=== PATIENT | female | born 1940 | race Caucasian/White ===

== ENCOUNTER 2021-02-15 10:13 | Outpatient (CLI) | payer MEDICARE, SELFPAY ==
--- NOTE | 2021-02-15 | XR_ITS ---
WS: [id number] Right wrist, 3 views, 02/15/2021 Clinical Data: RT WRIST PAIN, NO KNOWN INJURY Comparison: None. Findings: No fractures or dislocations are seen. The carpal bones are intact. There is no soft tissue swelling. The distal radius and ulna are not remarkable. There are small cysts in several carpal bones. 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 XR/XR wrist RT min 3V* [id number] Impression: 1. Minimal cystic change in the carpal bones. 2. 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
== END 2021-02-15 10:14 | disposition home or self-care (01) ==
LOC: RADOUTREAD 10:23
PROVIDERS: Visit Provider Nurse Practitioner Family
DX: M19.031 Primary osteoarthritis, right wrist (principal); M25.531 Pain in right wrist

== ENCOUNTER 2021-02-28 20:11 | Emergency (ER) | payer MEDICARE, SELFPAY ==
[2021-02-28 20:54] VITALS: BP 148/81; PULSE 74; RESP 16; TEMP 37.9; O2SAT 94
--- NOTE | 2021-02-28 22:47 | ED_ITS ---
HPI - COVID General: Chief Complaint: COVID symptoms Stated Complaint: Fever, headache,N/V Time Seen by Provider: 02/28/21 22:28 Triage information: No fever, cough or shortness of breath . No known COVID + exposure last 14 days History of Present Illness: HPI Narrative: Patient complains about Covid-like symptoms starting today. Had a fever headache loss of taste smell been nauseated aching all over. Patient has not been vaccinated MD complaint: has COVID symptoms Prior covid testing: no COVID 19 common symptoms: positive fever(s), body aches, headache(s), loss of sense of smell and/or taste and nausea; negative non-productive cough, productive cough, dyspnea, throat pain or nasal congestion COVID 19 other sytmptoms: negative chest pain Onset (ago): hour(s) Severity: mild Treatment prior to arrival: none COVID Results: SARS-CoV-2 Antigen (Rapid) Negative (Negative) 02/28/21 23:20 02/28/21 Review of Systems Const: Reports: fever(s) and body aches Eyes: Denies: change in vision or blurry vision ENMT: Denies: throat pain or nasal congestion Card: Denies: chest pain or dyspnea on exertion Resp: Denies: dyspnea, productive cough or non-productive cough GI: Reports: nausea Musc: Denies: extremity pain Skin/Breast: Denies: rash Neuro: Reports: headache(s) Psych: Denies: anxiety or depression David/Lymph: Denies: easy bruising Physical Exam Const: COMMON NORMALS: no acute distress, average body habitus and patient oriented x3 HENMT: COMMON NORMALS: normocephalic HEAD & SCALP: normal to inspection and normocephalic FACE & SINUS: normal facial exam Eye: COMMON NORMALS: conjunctivae normal GENERAL EYE: appearance normal, both eyes and all related structures CONJUNCTIVA: Yes conjunctivae normal Neck/C-Spine: COMMON NORMALS: no JVD Chest: COMMONS NORMALS: normal inspection of the chest Resp: COMMON NORMALS: normal respiratory effort and clear to auscultation bilaterally AUSCULTATION: clear to auscultation bilaterally Cardio: COMMON NORMALS: no JVD, regular rate and regular rhythm RATE: regular rate RHYTHM: regular rhythm GI: COMMON NORMALS: Normal to inspection, nondistended, normoactive bowel sounds present Extremity: COMMON NORMALS: normal to inspection and full ROM Neuro: COMMON NORMALS: patient oriented x3 Course Vital Signs: Vital signs: Vital Signs Temperature 100.3 F H 02/28/21 20:54 Pulse Rate 63 03/01/21 00:59 Respiratory Rate 16 02/28/21 20:54 Blood Pressure 136/71 03/01/21 00:59 Pulse Oximetry 96 03/01/21 00:59 MDM - COVID MDM Narrative: Medical decision making narrative: Patient presents with Covid- like symptoms. Covid work-up was negative. WBC was elevated at 15.8 with a left shift. Chest x-ray was negative. UA shows ordered but was not obtained. Patient was given fluids plus IV antibiotics Rocephin. Patient says she wants to go home does not want to stay any longer. I did not find sources for fever. Patient was given case management consult for primary care provider. Instructed with strict instructions to follow-up here are go see her primary care if worsening symptoms. Patient agrees to plan. Lab Data: Labs: Lab Results 02/28/21 02/28/21 02/28/21 23:20 23:20 23:23 WBC 15.8 10^3/uL H 10 ^3/uL (4.0-10.0) RBC 4.45 10^6/uL 10^6 /uL (4.1-5.3) Hgb 14.2 g/dL g/dL (11.5-15.3) Hct 41.3 % % (37.0-47.0) MCV 92.8 fl fl (81-99) MCH 31.9 pg pg (28.0-34.0) MCHC 34.4 g/dL g/dL (30.0-36.0) RDW 12.2 % % (12.1-15.1) Plt Count 206 10^3/cmm 10^3 /cmm (130-400) MPV 9.6 fL fL (7.4-10.4) Neut % (Auto) 90.2 % % Lymph % (Auto) 4.3 % % [place] % (Auto) 4.1 % % Eos % (Auto) 0.6 % % Baso % (Auto) 0.2 % % Neut # (Auto) 14.23 10^3/uL H 1 0^3/uL (1.8-7.7) Lymph # (Auto) 0.7 10^3/uL L 10^ 3/uL (0.8-4.8) [place] # (Auto) 0.7 10^3/uL 10^3/ uL (0.2-0.9) Eos # (Auto) 0.1 10^3/uL 10^3/ uL (0.0-0.8) Baso # (Auto) 0.0 10^3/uL 10^3/ uL (0.0-0.1) Nucleated RBC % (a uto) 0 % % Nucleated RBCs # 0.0 /100WBC /100W BC Sodium Potassium Chloride Carbon Dioxide Anion Gap BUN Creatinine GFR Calculation Glucose Calculated Osmolal ity Calcium Total Bilirubin AST ALT Alkaline Phosphata se Total Protein Albumin Globulin Influenza Type A A g Negative (Negative) Influenza Type B A g Negative (Negative) SARS-CoV-2 Ag (Rap id) Negative (Negative) 02/28/21 23:23 WBC RBC Hgb Hct MCV MCH MCHC RDW Plt Count MPV Neut % (Auto) Lymph % (Auto) [place] % (Auto) Eos % (Auto) Baso % (Auto) Neut # (Auto) Lymph # (Auto) [place] # (Auto) Eos # (Auto) Baso # (Auto) Nucleated RBC % (a uto) Nucleated RBCs # Sodium 135 mmol/L L mmol /L (136-145) Potassium 3.9 mmol/L mmol/L (3.5-5.1) Chloride 101 mmol/L mmol/L (98-107) Carbon Dioxide 20 mmol/L L mmol/ L (22-29) Anion Gap 17.9 (5-19) BUN 11 mg/dL mg/dL (8-23) Creatinine 0.7 mg/dL mg/dL (0.5-0.9) GFR Calculation Not Reportable Glucose 120 mg/dL H mg/dL (65-115) Calculated Osmolal ity 281 mOsm/kg L mOs m/kg (285-295) Calcium 8.3 mg/dL L mg/dL (8.5-10.5) Total Bilirubin 0.9 mg/dL mg/dL (0.15-1.2) AST 12 U/L U/L (0-32) ALT 11 U/L U/L (0-33) Alkaline Phosphata se 67 IU/L IU/L (35-105) Total Protein 6.0 g/dL L g/dL (6.6-8.7) Albumin 3.8 g/dL g/dL (3.5-5.2) Globulin 2.2 g/dL g/dL (1.3-4.6) Influenza Type A A g Influenza Type B A g SARS-CoV-2 Ag (Rap id) COVID Results: SARS-CoV-2 Antigen (Rapid) Negative (Negative) 02/28/21 23:20 02/28/21 Discharge Plan Discharge Patient Disposition: Home Clinical Impression: Fever Qualifiers: Fever type: due to other condition Qualified Code(s): R50.81 - Fever presenting with conditions classified elsewhere Condition: Stable Prescriptions: New cephalexin 500 mg capsule 500 mg PO Q8H 7 Days Qty: 21 RF: 0 Discharge Orders: Discharge ED (Routine); Ordered 03/01/21 Ordered By: Thierry Poon Discharge Diet: Usual diet Discharge Activity: Increase activity as tolerated Patient Instructions: Fever in Adults (ED) Activity Restrictions/Additional Instructions: Follow-up with medical provider as directed. Take medications as prescribed. Return to the ER or your medical provider if condition worsens. Please read and understand discharge instructions. If any questions ask please. Coding Level of Care Code ED Commercial Credit Reviewer for Melodie Fwd Exam Comprehensive
[2021-02-28 23:25] VITALS: BP 116/67; PULSE 64; O2SAT 96
[2021-02-28 23:28] VITALS: O2SAT 96
[2021-02-28 23:49] LABS: Influenza A by IFA Negative (Negative); Influenza B by IFA Negative (Negative); SARS Covid-2 Antigen Negative (Negative)
[2021-02-28 23:57] LABS: Basophils % 0.2 %; Eosinophils # 0.1 10^3/uL (0.0-0.8); Eosinophils % 0.6 %; Hematocrit 41.3 % (37.0-47.0); Hemoglobin 14.2 g/dL (11.5-15.3); Lymphocytes # 0.7 10^3/uL (0.8-4.8); Lymphocytes % 4.3 %; Mean Corpuscular HGB Conc 34.4 g/dL (30.0-36.0); Mean Corpuscular Hemoglobin 31.9 pg (28.0-34.0); Mean Corpuscular Volume 92.8 fl (81-99); Mean Platelet Volume 9.6 fL (7.4-10.4); Monocytes # 0.7 10^3/uL (0.2-0.9); Monocytes % 4.1 %; Neutrophils # 14.23 10^3/uL (1.8-7.7); Neutrophils % 90.2 %; Nucleated Red Blood Cells % 0 %; Platelet Count 206 10^3/cmm (130-400); Red Blood Count 4.45 10^6/uL (4.1-5.3); Red Cell Distribution Width 12.2 % (12.1-15.1); White Blood Count 15.8 10^3/uL (4.0-10.0)
--- NOTE | 2021-03-01 00:01 | XRR_ITS ---
PROCEDURE INFORMATION: Exam: XR Chest Exam date and time: 03/01/2021 12:01 AM Age: 80 years old Clinical indication: Fever TECHNIQUE: Imaging protocol: XR of the chest. Views: 1 view. COMPARISON: No relevant prior studies available. FINDINGS: Lungs: Emphysematous lung changes. No focal airspace consolidation. Pleural spaces: Unremarkable. No pleural effusion. No pneumothorax. Heart/Mediastinum: Mild cardiomegaly. Bones/joints: Unremarkable. XR/XR chest 1V portable [id number] IMPRESSION: Negative for focal pneumonia.
[2021-03-01 00:08] LABS: Alanine Aminotransferase 11 U/L (0-33); Albumin Level 3.8 g/dL (3.5-5.2); Alkaline Phosphatase 67 IU/L (35-105); Anion Gap 17.9 (5-19); Aspartate Amino Transferase 12 U/L (0-32); Blood Urea Nitrogen 11 mg/dL (8-23); Calcium 8.3 mg/dL (8.5-10.5); Carbon Dioxide 20 mmol/L (22-29); Chloride 101 mmol/L (98-107); Globulin 2.2 g/dL (1.3-4.6); Glucose 120 mg/dL (65-115); Osmolality Calculated 281 mOsm/kg (285-295); Potassium 3.9 mmol/L (3.5-5.1); Sodium 135 mmol/L (136-145); Total Bilirubin 0.9 mg/dL (0.15-1.2)
[2021-03-01] MEDS: sodium chloride 0.9% 500 ML 999 ML IV (00:13)
[2021-03-01] MEDS: ketorolac 30 mg/mL INJ IVP (00:14)
[2021-03-01] MEDS: acetaminophen 500 mg Tablet 1000 MG PO (00:15)
[2021-03-01] MEDS: sodium chloride 0.9% 1,000 ML 999 ML IV (00:15)
[2021-03-01] MEDS: ondansetron 2 mg/ML SDV 2 mL 4 MG IVP (00:19)
[2021-03-01] MEDS: cefTRIAXone 1,000 MG in sodium chloride 0.9% (plus) 50 ML 100 MG IV (00:19)
[2021-03-01 00:21] VITALS: BP 136/71; PULSE 63; O2SAT 96
[2021-03-01 00:59] VITALS: BP 136/71; PULSE 63; O2SAT 96
--- NOTE | 2021-03-05 16:40 | PC.SOCIAL ---
Addendum entered by Amparo Leahy, RN 03/05/21 16:42: Please note spoke to ximena at clinic to schedule appt. Original Note: Referral received from ED provider Thierry Poon to establish and followup with PCP. Patient is agreeable to see Dr Andrade therefore appt made for 03/11/2021 at 1:00pm. Provided address and phone number to clinic as well. NO further questions voiced.
--- NOTE | 2021-03-14 15:38 | DCPLANNER ---
Patient had a follow up appointment scheduled with Dr. Andrade to establish care - patient did attend appointment.
== END 2021-03-01 01:02 | disposition home or self-care (01) ==
PROVIDERS: Emergency Provider Nurse Practitioner Family
DX: D72.829 Elevated white blood cell count, unspecified (principal); R50.81 Fever presenting with conditions classified elsewhere
CPT/HCPCS: 71045; 80053; 85025; 87426; 87804; 96365; 96375; 99284; J0696; J1885; J2405; J7030; J7040

== ENCOUNTER → 2021-03-11 14:17 | Outpatient (BNVA) | payer MEDICARE, SELFPAY | PROVIDERS: Visit Provider Family Medicine | DX: M25.50 Pain in unspecified joint (principal); M25.40 Effusion, unspecified joint; Z76.89 Persons encountering health services in other specified circumstances; Z86.2 Personal history of diseases of the blood and blood-forming organs and certain disorders involving the immune mechanism | CPT/HCPCS: 84550; 85651; 86038; 86140; 86200; 86431 ==

== ENCOUNTER → 2021-03-19 14:29 | Outpatient (BNVA) | payer MEDICARE, SELFPAY | PROVIDERS: Visit Provider Family Medicine | DX: R76.8 Other specified abnormal immunological findings in serum (principal); M25.50 Pain in unspecified joint; M25.40 Effusion, unspecified joint; Z12.4 Encounter for screening for malignant neoplasm of cervix | CPT/HCPCS: 86160; 86162; 86235; 86255; 86376; 86705; 86706; 86803; 87340 ==

== ENCOUNTER 2021-05-13 07:55 | Outpatient (CLI) | payer MEDICARE, SELFPAY ==
--- NOTE | 2021-05-13 09:17 | XRR_ITS ---
PROCEDURE INFORMATION: Exam: XR Chest Exam date and time: 05/13/2021 9:17 AM Age: 80 years old Clinical indication: Prior surgery; Surgery type: --partial hyst; Patient HX: HX of sarcoidosis; C/O shortness of breath and cannot get deep breath x 2 weeks; Additional info: Shortness of breath/sarcoidosis TECHNIQUE: Imaging protocol: XR of the chest. Views: 2 views. COMPARISON: CR (CHEST, ) 03/01/2021 12:06 AM FINDINGS: Lungs: Unremarkable. No consolidation. Pleural spaces: Unremarkable. No pleural effusion. No pneumothorax. Heart/Mediastinum: Unremarkable. No cardiomegaly. Bones/joints: Unremarkable. XR/XR chest 2V* [id number] IMPRESSION: No acute findings.
== END 2021-05-13 07:56 | disposition home or self-care (01) ==
PROVIDERS: PCP Family Medicine; Visit Provider Family Medicine
DX: R06.02 Shortness of breath (principal)
CPT/HCPCS: 71046

== ENCOUNTER 2022-01-20 15:08 | Emergency (ER) | payer MEDICARE, SELFPAY ==
[2022-01-20] VITALS (15 sets, daily range): BP systolic 152–208; BP diastolic 84–111; PULSE 55–79; RESP 11–35; TEMP 36.6; O2SAT 94–100
--- NOTE | 2022-01-20 15:30 | ECG_ITS ---
[facility] Test Date: 2022-01-20 Pat Name: Lawanda Bernstein Department: Room: Gender: Female Security Operations Manager: : 1940 Requested By: Tobias Quan Order Number: [id number] Pete MD: Vida Lopez M.D. Measurements Intervals [place] Rate: 62 P: 56 VA: 196 QRS: -34 QRSD: 100 T: 69 QT: 436 QTc: 443 Interpretive Statements SINUS RHYTHM LEFT AXIS DEVIATION [QRS AXIS < -30] LOW QRS VOLTAGE IN PRECORDIAL LEADS [QRS DEFLECTION < 1.0 mV IN CHEST LEADS] PATTERN CONSISTENT WITH PULMONARY DISEASE LEFT VENTRICULAR HYPERTROPHY AND ST-T CHANGE [VOLTAGE CRITERIA PLUS ST/T ABNORMALITY] No previous ECG available for comparison Electronically Signed On 01-21-2022 12:02:08 FULLER BRUSH WORKER by Vida Lopez M.D. [id number]
--- NOTE | 2022-01-20 15:32 | ED_ITS ---
HPI - Chest Pain General: Chief Complaint: Chest Pain Stated Complaint: Dr. Andrade sent for heart issues Time Seen by Provider: 01/20/22 15:31 History of Present Illness: Ms. Bernstein is an 81-year-old lady with history of hypertension, hyperlipidemia, stroke, sarcoidosis presenting to the emergency department due to generalized illness. She reports a few day history of gradual onset chest discomfort which is a burning pressure in the middle of her chest without other typical cardiac features. Additionally she started having a presyncopal type feeling earlier today which is similar to a prior stroke though denies other focal neurologic symptoms. Overall course of symptoms has been worsening. Intensity is moderate to severe. Went to primary care earlier today who referred her to the emergency department for further evaluation. No other specific changes in health, exacerbating, or alleviating factors identified. Onset (ago): day(s) Timing of current episode: constant Onset: during rest Pain location: substernal Pain radiation: none Quality: heaviness and burning Relieving factors: nothing Exacerbating factors: nothing Associated symptoms: Reports other Review of Systems General: Reports: 10 or more systems reviewed and unremarkable except in HPI and below PFSH ED PFSH: Medical History Essential hypertension H/O sarcoidosis Mixed dyslipidemia Positive JANET (antinuclear antibody) Rheumatoid factor positive Surgical History History of partial hysterectomy Social History Smoking and tobacco status: never smoked Alcohol intake: never History of recent travel: No Female Reproductive History: Spontaneous abortions: No Physical Exam Const: COMMON NORMALS: alert GENERAL APPEARANCE: cooperative and well developed HENMT: COMMON NORMALS: normocephalic and atraumatic HEAD & SCALP: normocephalic and atraumatic Eye: COMMON NORMALS: conjunctivae normal CONJUNCTIVA: Yes conjunctivae normal SCLERA: sclerae normal Neck/C-Spine: COMMON NORMALS: supple GENERAL: Yes trachea midline Resp: COMMON NORMALS: clear to auscultation bilaterally EFFORT & INSPECTION: Yes able to speak in complete sentences AUSCULTATION: clear to auscultation bilaterally Cardio: COMMON NORMALS: regular rate and regular rhythm RATE: regular rate RHYTHM: regular rhythm GI: COMMON NORMALS: Soft to palpation PALPATION: Yes Soft to palpation and No Tenderness to palpation present (GI) Extremity: GENERAL: Yes normal exam except as noted and No edema Neuro: COMMON NORMALS: moves all extremities SENSORIUM/ORIENTATION: Yes alert and No Orientation impaired Psych: COMMON NORMALS: mental status grossly normal and Normal thought process present THOUGHT PROCESS: Normal thought process present Course Vital Signs: Vital signs: Vital Signs Temperature 97.9 F 01/20/22 15:23 Pulse Rate 56 L 01/20/22 18:30 Respiratory Rate 19 H 01/20/22 18:30 Blood Pressure 195/111 01/20/22 18:45 Pulse Oximetry 97 01/20/22 18:30 Oxygen Delivery Me thod 01/20/22 16:30 MDM - Chest Pain Medical Decision Making 81-year-old lady presenting for headache and high blood pressure. Exam as above, no new focal neurologic deficits appreciated. EKG notable for sinus rhythm with nonspecific QRS changes, no STEMI. Unremarkable hematologic panel. Metabolic panel with mild hypokalemia. 2-hour delta troponin is negative. Head CT without acute hemorrhage or mass. No lobar consolidation or pneumothorax on chest x-ray. Blood pressure control and potassium supplementation given with improvement in patient's symptoms. Most likely cause of patient's symptoms is related to hypertension without evidence of hypertensive emergency The results of ED evaluation were discussed with the patient including prescriptions and/or symptomatic cares (if applicable) including appropriate and responsible use, followup plan, and return precautions. The patient verbalized understanding and felt safe for discharge. Medical Records I reviewed the patient's medical records. Lab Data I reviewed the patient's lab results. : 01/20/22 15:48 01/20/22 15:48 Radiology Impressions Chest X-Ray 01/20/22 15:39 IMPRESSION: No acute findings. Head CT 01/20/22 15:39 IMPRESSION: No acute intracranial abnormality. Laboratory Results WBC 8.3 10^3/uL (4.0-10.0) 01/20/22 15:48 RBC 4.35 10^6/uL (4.1-5.3) 01/20/22 15:48 Hgb 13.8 g/dL (11.5-15.3) 01/20/22 15:48 Hct 39.4 % (37.0-47.0) 01/20/22 15:48 MCV 90.6 fl (81-99) 01/20/22 15:48 MCH 31.7 pg (28.0-34.0) 01/20/22 15:48 MCHC 35.0 g/dL (30.0-36.0) 01/20/22 15:48 RDW 12.3 % (12.1-15.1) 01/20/22 15:48 Plt Count 221 10^3/cmm (130-400) 01/20/22 15:48 MPV 9.7 fL (7.4-10.4) 01/20/22 15:48 Neut % (Auto) 76.5 % 01/20/22 15:48 Lymph % (Auto) 16.1 % 01/20/22 15:48 [place] % (Auto) 5.8 % 01/20/22 15:48 Eos % (Auto) 0.8 % 01/20/22 15:48 Baso % (Auto) 0.4 % 01/20/22 15:48 Neut # (Auto) 6.31 10^3/uL (1.8-7.7) 01/20/22 15:48 Lymph # (Auto) 1.3 10^3/uL (0.8-4.8) 01/20/22 15:48 [place] # (Auto) 0.5 10^3/uL (0.2-0.9) 01/20/22 15:48 Eos # (Auto) 0.1 10^3/uL (0.0-0.8) 01/20/22 15:48 Baso # (Auto) 0.0 10^3/uL (0.0-0.1) 01/20/22 15:48 Nucleated RBC % (auto) 0 % 01/20/22 15:48 Nucleated RBCs # 0.0 /100WBC 01/20/22 15:48 Sodium 138 mmol/L (136-145) 01/20/22 15:48 Potassium 3.2 mmol/L (3.5-5.1) L 01/20/22 15:48 Chloride 104 mmol/L (98-107) 01/20/22 15:48 Carbon Dioxide 22 mmol/L (22-29) 01/20/22 15:48 Anion Gap 15.2 (5-19) 01/20/22 15:48 BUN 9 mg/dL (8-23) 01/20/22 15:48 Creatinine 0.8 mg/dL (0.5-0.9) 01/20/22 15:48 GFR Calculation Not Reportable 01/20/22 15:48 Glucose 110 mg/dL (65-115) 01/20/22 15:48 Calculated Osmolality 285 mOsm/kg (285-295) 01/20/22 15:48 Calcium 9.0 mg/dL (8.5-10.5) 01/20/22 15:48 Total Bilirubin 0.5 mg/dL (0.15-1.2) 01/20/22 15:48 AST 13 U/L (0-32) 01/20/22 15:48 ALT 10 U/L (0-33) 01/20/22 15:48 Alkaline Phosphatase 107 U/L (35-105) H 01/20/22 15:48 Troponin T Baseline 10 ng/L (0-10) 01/20/22 15:48 Troponin T 120 Minute 9.01 ng/L (0-10) 01/20/22 15:48 Delta Troponin T -0.99 ABS# (0-10) L 01/20/22 15:48 NT-Pro-B Natriuret Pep 94 pg/mL (0-450) 01/20/22 15:48 Total Protein 6.3 g/dL (6.6-8.7) L 01/20/22 15:48 Albumin 4.0 g/dL (3.5-5.2) 01/20/22 15:48 Globulin 2.3 g/dL (1.3-4.6) 01/20/22 15:48 TSH 0.36 uIU/mL (0.27-4.20) 01/20/22 15:48 Discharge Plan Discharge Patient Disposition: Home Clinical Impression: Chest pain Condition: Stable Prescriptions: No Action aspirin 325 mg tablet 325 mg PO DAILY cholecalciferol (vitamin D3) 50 mcg (2,000 unit) capsule 50 mcg PO DAILY valsartan 320 mg tablet 320 mg PO DAILY Qty: 90 1RF amlodipine 5 mg tablet 5 mg PO DAILY Qty: 90 1RF omeprazole 40 mg capsule,delayed release(DR/EC) 40 mg PO DAILY Qty: 90 2RF amoxicillin-pot clavulanate 875-125 mg tablet 1 tab PO BID Qty: 14 0RF Coricidin HBP Max Cold-Flu D-N 6.25 mg-10 mg- 325 mg (nt) Capsule, Sequential See Rx Instructions .ROUTE .COMPLEX Rx Instructions: as directed Discharge Orders: Discharge ED (Routine); Ordered 01/20/22 Ordered By: Tobias Quan Referrals: Cortes Andrade DO [Primary Care Provider] - Discharge Diet: Usual diet Discharge Activity: Increase activity as tolerated Patient Instructions: Chest Pain (ED), Hypertension (ED) Activity Restrictions/Additional Instructions: Thank you for visiting the emergency department. You were seen evaluated for chest pain and high blood pressure. The exact cause of your symptoms is unclear, as discussed you are at moderate risk for major adverse cardiac events, you are electing to have further outpatient management. I will message case management for follow-up. Please follow-up with your primary care provider as well. Please resume your previously prescribed medications including blood pressure medications. Return to the emergency department for uncontrolled symptoms or anything else that you are concerned about a feel needs emergency department evaluation. Coding Level of Care Code ED Cnc Mill Operator for Melodie Fwd Exam Comprehensive
--- NOTE | 2022-01-20 15:39 | XRR_ITS ---
PROCEDURE INFORMATION: Exam: XR Chest Exam date and time: 01/20/2022 5:03 PM Age: 81 years old Clinical indication: Pain; Angina pectoris; Additional info: Cp TECHNIQUE: Imaging protocol: Radiologic exam of the chest. Views: 1 view. COMPARISON: CR XR chest 2V* [id number] 05/13/2021 9:17 AM FINDINGS: Lungs: Unremarkable. No consolidation. Pleural spaces: Unremarkable. No pleural effusion. No pneumothorax. Heart/Mediastinum: Unremarkable. No cardiomegaly. Bones/joints: Unremarkable. XR/XR chest 1V portable [id number] IMPRESSION: No acute findings.
--- NOTE | 2022-01-20 15:39 | CTR_ITS ---
PROCEDURE INFORMATION: Exam: CT Head Without Contrast Exam date and time: 01/20/2022 4:01 PM Age: 81 years old Clinical indication: Dizziness; Additional info: Presyncope type feeling TECHNIQUE: Imaging protocol: Computed tomography of the head without contrast. Radiation optimization: All CT scans at this facility use at least one of these dose optimization techniques: automated exposure control; mA and/or kV adjustment per patient size (includes targeted exams where dose is matched to clinical indication); or iterative reconstruction. COMPARISON: No relevant prior studies available. RADIATION DOSE METRICS: Total DLP (mGy-cm): 993.08 FINDINGS: Brain: No hemorrhage. No edema. Moderate diffuse cerebral atrophy and mild sequela of chronic small vessel ischemic disease. No mass effect. Cerebral ventricles: No ventriculomegaly. Paranasal sinuses: Visualized sinuses are unremarkable. No fluid levels. Mastoid air cells: Visualized mastoid air cells are well aerated. Bones/joints: Unremarkable. No acute fracture. Soft tissues: Unremarkable. CT/CT head wo con* [id number] IMPRESSION: No acute intracranial abnormality.
[2022-01-20 16:00] LABS: Basophils % 0.4 %; Eosinophils # 0.1 10^3/uL (0.0-0.8); Eosinophils % 0.8 %; Hematocrit 39.4 % (37.0-47.0); Hemoglobin 13.8 g/dL (11.5-15.3); Lymphocytes # 1.3 10^3/uL (0.8-4.8); Lymphocytes % 16.1 %; Mean Corpuscular Hemoglobin 31.7 pg (28.0-34.0); Mean Corpuscular Volume 90.6 fl (81-99); Mean Platelet Volume 9.7 fL (7.4-10.4); Monocytes # 0.5 10^3/uL (0.2-0.9); Monocytes % 5.8 %; Neutrophils # 6.31 10^3/uL (1.8-7.7); Neutrophils % 76.5 %; Nucleated Red Blood Cells % 0 %; Platelet Count 221 10^3/cmm (130-400); Red Blood Count 4.35 10^6/uL (4.1-5.3); Red Cell Distribution Width 12.3 % (12.1-15.1); White Blood Count 8.3 10^3/uL (4.0-10.0)
[2022-01-20] MEDS: aspirin 81 mg Chew Tablet 324 MG PO (16:14)
[2022-01-20] MEDS: nitroglycerin 0.4 mg sublingual Tablet SUBLINGUAL ×2 (16:18→16:24)
[2022-01-20 16:23] LABS: Alanine Aminotransferase 10 U/L (0-33); Alkaline Phosphatase 107 U/L (35-105); Anion Gap 15.2 (5-19); Aspartate Amino Transferase 13 U/L (0-32); Blood Urea Nitrogen 9 mg/dL (8-23); Carbon Dioxide 22 mmol/L (22-29); Chloride 104 mmol/L (98-107); Globulin 2.3 g/dL (1.3-4.6); Glucose 110 mg/dL (65-115); NT Pro B Type Natriuretic Pept 94 pg/mL (0-450); Osmolality Calculated 285 mOsm/kg (285-295); Potassium 3.2 mmol/L (3.5-5.1); Sodium 138 mmol/L (136-145); Thyroid Stimulating Hormone 0.36 uIU/mL (0.27-4.20); Total Bilirubin 0.5 mg/dL (0.15-1.2); Total Protein 6.3 g/dL (6.6-8.7)
[2022-01-20 16:24] LABS: Troponin(5th) Baseline 10 ng/L (0-10)
[2022-01-20] MEDS: labetalol 5 mg/mL SDV 20mL 20 MG IVP (16:29)
[2022-01-20] MEDS: amlodipine 5 mg Tablet PO (18:17)
[2022-01-20] MEDS: potassium chloride ER 20 mEq Tablet 40 MEQ PO (18:17)
[2022-01-20 18:22] LABS: Troponin 5 2HR 9.01 ng/L (0-10)
[2022-01-20 18:40] LABS: Troponin 5 2HR Delta -0.99 ABS# (0-10)
--- NOTE | 2022-01-21 10:22 | DCPLANNER ---
Addendum entered by Ruth Chandler 04/30/22 11:08: Patient had a stress test scheduled for 04.30.22 - patient did attend appointment. Original Note: manager universal had message to schedule an outpatient stress test for patient. manager universal faxed signed order to centralized scheduling, who will call patient with appointment information. manager universal also sent patients primary care physician, Dr. Manzo, notification that a stress test was ordered by the ER physician.
== END 2022-01-20 18:49 | disposition home or self-care (01) ==
PROVIDERS: Emergency Provider Emergency Medicine; PCP Family Medicine
DX: R07.9 Chest pain, unspecified (principal); I10 Essential (primary) hypertension; E87.6 Hypokalemia; Z79.82 Long term (current) use of aspirin; Z86.73 Personal history of transient ischemic attack (TIA), and cerebral infarction without residual deficits
CPT/HCPCS: 70450; 71045; 80053; 83880; 84443; 84484; 85025; 93005; 96374; 99285; J3490

== ENCOUNTER → 2022-02-04 07:36 | Outpatient (BNVA) | payer MEDICARE, SELFPAY | PROVIDERS: PCP Family Medicine; Visit Provider Family Medicine | DX: R30.0 Dysuria (principal) | CPT/HCPCS: 81000; 87086 ==

== ENCOUNTER 2023-08-06 06:25 | Outpatient (CLI) | payer OTHER, SELFPAY ==
--- NOTE | 2023-08-06 07:12 | MR_ITS ---
WS: [id number] MRI CERVICAL SPINE NONCONTRAST TECHNIQUE: Sagittal T1, T2 and STIR imaging. Axial T2, gradient, and fiesta imaging. CLINICAL INFORMATION: CERVICAL REGION RADICULOPATHY COMPARISON: None. FINDINGS: Straightening of the normal cervical lordosis. Cord signal is normal. No high-grade central canal kenia rowing. C2-C3: Mild facet arthropathy. Spinal canal and foramen are patent. C3-C4: Mild LEFT and no significant RIGHT foraminal narrowing. Mild facet arthropathy. C4-C5: Mild disc osteophyte complex with endplate ridging. Moderate LEFT and mild RIGHT bony foramina l narrowing. Spinal canal is patent. Moderate facet arthropathy. C5-C6: Disc osteophyte complex with endplate ridging. Mild to moderate LEFT and no significant RIGHT foraminal narrowing. Moderate facet arthropathy. C6-C7: Disc osteophyte complex with endplate ridging. Mild bilateral foraminal narrowing. Spinal luz elena l is patent. Mild facet arthropathy. C7-T1: Endplate osteophytic ridging. Mild LEFT and no significant RIGHT foraminal narrowing. Spinal c anal is patent. Visualized brain stem structures: Normal. Prevertebral soft tissues: Normal. MR/MR cervical spin wo con* [id number] IMPRESSION: 1. Straightening of the normal cervical doses with mild spondylitic changes. C ord signal is normal. 2. No significant central canal stenosis. 3. Mild to moderate foraminal narrowing LEFT C4-5, LEFT C5-6, and LEFT C7-T1 4. No other acute findings.
== END 2023-08-06 06:26 | disposition home or self-care (01) ==
LOC: RAD 06:25
PROVIDERS: PCP Family Medicine; Visit Provider Family Medicine
DX: M54.12 Radiculopathy, cervical region (principal); M99.61 Osseous and subluxation stenosis of intervertebral foramina of cervical region; M99.62 Osseous and subluxation stenosis of intervertebral foramina of thoracic region; M25.78 Osteophyte, vertebrae
CPT/HCPCS: 72141

== ENCOUNTER 2023-10-29 18:45 | Inpatient (IN) | payer MEDICARE, SELFPAY ==
[2023-10-29] VITALS (7 sets, daily range): BP systolic 92–134; BP diastolic 53–96; PULSE 78–89; RESP 18–20; TEMP 36.9–39.5; O2SAT 91–95; BMI 27.4
--- NOTE | 2023-10-29 18:57 | XRR_ITS ---
PROCEDURE INFORMATION: Exam: XR Chest Exam date and time: 10/29/2023 7:23 PM Age: 82 years old Clinical indication: Cough and fever; Additional info: Fever, cough TECHNIQUE: Imaging protocol: Radiologic exam of the chest. Views: 1 view. COMPARISON: CR XR chest 2V* [id number] 12/29/2022 1:36 PM FINDINGS: Lungs: The lungs are adequately expanded. Central vascular prominence without overt edema. Mild left basilar atelectasis. Pleural spaces: No pleural effusion or pneumothorax. Heart/Mediastinum: Cardiomegaly. Vasculature: Atherosclerotic calcifications. Bones/joints: Degenerative changes of the right shoulder. XR/XR chest 1V portable [id number] IMPRESSION: Central vascular prominence without overt edema. Mild left basilar atelectasis.
--- NOTE | 2023-10-29 18:59 | ED_ITS ---
HPI - Fever 2 General: Chief Complaint: Nausea/Vomiting/Diarrhea Stated Complaint: n/v weakness Time Seen by Provider: 10/29/23 18:46 Source: patient and family Mode of arrival: EMS Limitations: no limitations History of Present Illness: This patient was transported by EMS from her home. She is here because she developed fever chills this afternoon with nausea and vomiting. She had had an EGD this morning at [facility] and only notable for some mild what sounds like gastritis that was biopsied. She has been having some off-and-on stomach problems for some time and this was part of that workup. She has had a mild nonproductive cough for the past couple of days as well. She denies any dysuria diarrhea ongoing chest pain difficulty breathing etc. She states she does have a history of congestive heart failure. She states she has not any recent travel or known exposure to infectious disease. MD elicited complaint: fever Context: recent procedure Associated symptoms: Reports chills, nausea and vomiting; Deny abdominal pain, flank pain, chest pain, dysuria, extremity pain, headache(s) or nasal congestion Related Data Home Medications Medication Instructions Recorded Confirmed aspirin 325 mg tablet 325 mg PO DAILY 03/11/21 08/22/22 cholecalciferol (vitamin D3) 50 50 mcg PO DAILY 03/11/21 08/22/22 mcg (2,000 unit) capsule doxylamine 6.25 mg-DM 10 See Rx Instructions .Route .COMPLEX 01/20/22 08/22/22 mg-acetaminophen 325 mg (nt)-GG capsules,seq (Coricidin HBP Max Cold-Flu Day-Night) Previous Rx's Medication Instructions Recorded amlodipine 2.5 mg tablet 2.5 mg PO DAILY #90 tabs 04/23/22 tramadol 50 mg tablet 50 mg PO BID PRN pain 7 days #14 08/22/22 tabs valacyclovir 500 mg tablet 500 mg PO DAILY #5 tabs 09/23/22 omeprazole 40 mg capsule,delayed See Rx Instructions .Route 10/20/22 release .COMPLEX #90 caps valsartan 320 mg tablet See Rx Instructions .Route 01/13/23 .COMPLEX #90 tabs Allergies Allergy/AdvReac Type Severity Reaction Status Date / Time No Known Allergies Allergy Verified 08/22/22 14:24 Review of Systems 2 Const: Reports: fever(s), chills and body aches Eyes: Denies: change in vision ENMT: Denies: throat pain, odynophagia, nasal discharge or nasal congestion Card: Denies: chest pain, palpitations, irregular heart rhythm, lightheadedness, syncope or pre-syncope Resp: Reports: non-productive cough; Denies: dyspnea GI: Reports: nausea and vomiting; Denies: abdominal pain, hematemesis, hematochezia or melena : Denies: flank pain, difficulty voiding, dysuria or urinary frequency Musc: Denies: neck pain, back pain, extremity pain or extremity swelling Skin/Breast: Denies: rash Neuro: Denies: headache(s), numbness in extremities or weakness in extremities Psych: Denies: anxiety, depression, mood swings, panic attacks or sleeping less PFSH ED 2 PFSH: Medical History Mixed dyslipidemia Essential hypertension Rheumatoid factor positive Positive JANET (antinuclear antibody) H/O sarcoidosis Surgical History History of partial hysterectomy Social History Smoking and tobacco/nicotine status: never used tobacco/nicotine Alcohol intake: never Substance/Drug Use: never Female Reproductive History: Spontaneous abortions: No Physical Exam 2 Narrative: EXAM NARRATIVE: The patient is alert appears to be somewhat uncomfortable but answers questions in a goal-directed fashion makes good eye contact. Const: COMMON NORMALS: no acute distress, average body habitus, patient oriented x3 and alert GENERAL APPEARANCE: cooperative HENMT: COMMON NORMALS: normocephalic, Normal nasal mucous membranes and turbinates present, moist oral mucous membranes and oropharynx normal HEAD & SCALP: normocephalic FACE & SINUS: normal facial exam and sinuses nontender NOSE: Normal nasal mucous membranes and turbinates present Eye: COMMON NORMALS: Equal, round and reactive pupils present, EOMs intact bilaterally and conjunctivae normal CONJUNCTIVA: Yes conjunctivae normal P UPIL: Yes Equal, round and reactive pupils present Neck/C-Spine: COMMON NORMALS: full ROM, no lymphadenopathy, supple and no meningeal signs Chest: COMMONS NORMALS: normal inspection of the chest Resp: COMMON NORMALS: normal respiratory effort, No retractions, No use of accessory muscles and clear to auscultation bilaterally AUSCULTATION: clear to auscultation bilaterally Cardio: COMMON NORMALS: regular rate, No murmurs present (Cardio) and Peripheral pulses 2+ throughout RATE: regular rate PERIPHERAL PULSES: P eripheral pulses 2+ throughout GI: COMMON NORMALS: Normal to inspection, nondistended, normoactive bowel sounds present, Soft to palpation and non-tender PALPATION: Yes Soft to palpation : COMMON NORMALS: Yes no CVA tenderness BLADDER/KIDNEY EXAM: Yes no CVA tenderness Back/Pelvis: COMMON NORMALS: no CVA tenderness, thoracic and lumbar spine normal to inspection, no thoracic nor lumbar tenderness and thoraco-lumbar ROM normal Extremity: COMMON NORMALS: normal to inspection, full ROM, no calf tenderness and no pedal edema Neuro: COMMON NORMALS: patient oriented x3, moves all extremities, no focal motor deficits and no sensory deficits noted SENSORIUM/ORIENTATION: Yes alert MENINGEAL SIGNS: Yes no meningeal signs Skin: COMMON NORMALS: no rashes or lesions noted, no wounds, turgor normal, no jaundice and no petechiae GENERAL SKIN EXAM: no rashes or lesions noted and turgor normal Course 2 Reevaluation(s): Reevaluation #1: Ancillary studies of all returned and pointed this patient having a pneumonia as likely etiology of her presentation. It was shared with both the patient and her daughter who is present. The patient parenthetically related to me after this information was provided to them that she had received an albuterol treatment at the clinic before her EGD earlier today which tends to support a pulmonary etiology. No evidence of other intra-abdominal process or other concerning findings at this time to port infection in other locations. Time: 21:18 Consultations: Consultation #1: Discussed with Dr. Torres who agreed to place the patient in observation. Time: 21:24 Vital Signs: Vital signs: Vital Signs Temperature 101.4 F H 10/29/23 20:02 Pulse Rate 89 10/29/23 20:02 Respiratory Rate 18 10/29/23 20:02 Blood Pressure 114/71 10/29/23 20:02 Pulse Oximetry 95 10/29/23 20:02 Oxygen Delivery Me thod Nasal Cannula 10/29/23 20:02 Oxygen Flow Rate 2 10/29/23 20:02 MDM - Fever Medical Decision Making This patient made her way to the emergency department as noted in the HPI. History was somewhat difficult to obtain and was elucidated in a more complete fashion upon the arrival of her daughter. The patient primarily initially described being at outpatient facility for an EGD which was completed and then returning home and feeling hungry and eating and then having episode of vomiting. She had no sustained abdominal pain but did not feel well. On presentation she had fever but otherwise on remarkable clinical examination. There was no significant history of prodrome to her presentation so therefore a broad differential was entertained. She was evaluated for potential ACS, pulmonary infection, abdominal infection, urinary tract infection, viral infection. Studies were obtained which eventually led to CT scan showing groundglass appearance on the incidental lower lung images. Her chest x-ray did show a what was called atelectasis which is likely infiltrative process consistent with her CT. Given the lack of other potential etiologies of fever such as a negative COVID, negative urinary tract and no other intra-abdominal process pulmonary is the most likely at this point. Her lactate was elevated and she has also had a concomitant leukocytosis. She was received IV fluid as well as IV antibiotics. At this point she is clinically stable without any signs of sepsis. He is being placed in observation after discussion with the hospitalist. Lab Data I reviewed the patient's lab results. 10/29/23 19:05 10/29/23 19:05 Radiology Impressions Chest X-Ray 10/29/23 18:57 IMPRESSION: Central vascular prominence without overt edema. Mild left basilar atelectasis. Abdomen/Pelvis CT 10/29/23 20:33 IMPRESSION: 1. No acute findings within the abdomen or pelvis. 2. Large colonic stool burden. 3. Ground-glass opacities within left lung base concerning for infectious/inflammatory etiology. Laboratory Results WBC 12.84 10^3/uL (3.29-11.43) H 10/29/23 19:05 RBC 4.57 10^6/uL (3.85-5.65) 10/29/23 19:05 Hgb 14.50 g/dL (11.27-16.99) 10/29/23 19:05 Hct 40.8 % (36-47) 10/29/23 19:05 MCV 89.3 fl (85-98) 10/29/23 19:05 MCH 31.7 pg (27-33) 10/29/23 19:05 MCHC 35.5 g/dL (30-55) 10/29/23 19:05 RDW 12.7 % (12.1-15.1) 10/29/23 19:05 Plt Count 282 10^3/cmm (157-399) 10/29/23 19:05 MPV 9.7 fL (7.4-10.4) 10/29/23 19:05 Neut % (Auto) 89.1 % 10/29/23 19:05 Lymph % (Auto) 7.2 % 10/29/23 19:05 Pender % (Auto) 2.8 % 10/29/23 19:05 Eos % (Auto) 0.5 % 10/29/23 19:05 Baso % (Auto) 0.2 % 10/29/23 19:05 Neut # (Auto) 11.45 10^3/uL (1.8-7.7) H 10/29/23 19:05 Lymph # (Auto) 0.9 10^3/uL (0.8-4.8) 10/29/23 19:05 Pender # (Auto) 0.4 10^3/uL (0.2-0.9) 10/29/23 19:05 Eos # (Auto) 0.1 10^3/uL (0.0-0.8) 10/29/23 19:05 Baso # (Auto) 0.0 10^3/uL (0.0-0.1) 10/29/23 19:05 Nucleated RBC % (auto) 0 % 10/29/23 19:05 Nucleated RBCs # 0.0 /100WBC 10/29/23 19:05 Sodium 131 mmol/L (136-145) L 10/29/23 19:05 Potassium 3.1 mmol/L (3.5-5.1) L 10/29/23 19:05 Chloride 90 mmol/L (98-107) L 10/29/23 19:05 Carbon Dioxide 28 mmol/L (22-29) 10/29/23 19:05 Anion Gap 16.1 (5-19) 10/29/23 19:05 BUN 14 mg/dL (8-23) 10/29/23 19:05 Creatinine 0.9 mg/dL (0.5-0.9) 10/29/23 19:05 GFR Calculation Not Reportable 10/29/23 19:05 Glucose 95 mg/dL (65-115) 10/29/23 19:05 Calculated Osmolality 272 mOsm/kg (285-295) L 10/29/23 19:05 Lactic Acid 3.1 mmol/L (0.5-2.2) H 10/29/23 19:05 Calcium 9.3 mg/dL (8.5-10.5) 10/29/23 19:05 Total Bilirubin 1.0 mg/dL (0.15-1.2) 10/29/23 19:05 AST 17 U/L (0-32) 10/29/23 19:05 ALT 19 U/L (0-33) 10/29/23 19:05 Alkaline Phosphatase 82 U/L (35-105) 10/29/23 19:05 NT-Pro-B Natriuret Pep 124 pg/mL (0-450) 10/29/23 19:05 Total Protein 6.6 g/dL (6.6-8.7) 10/29/23 19:05 Albumin 4.3 g/dL (3.5-5.2) 10/29/23 19:05 Globulin 2.3 g/dL (1.3-4.6) 10/29/23 19:05 Lipase 15 U/L (13-60) 10/29/23 19:05 Urine Color Yellow (Yellow) 10/29/23 20:28 Urine Appearance Clear (CLEAR) 10/29/23 20: Urine pH 7.0 (5-7) 10/29/23 20:28 Ur Specific [place] 1.013 (1.005-1.030) 10/29/23 20:28 Urine Protein Negative (Negative) 10/29/23 20:28 Urine Glucose (UA) Negative (Normal) 10/29/23 20: Urine Ketones Trace (Negative) 10/29/23 20: Urine Blood Negative (Negative) 10/29/23 20: Urine Nitrate Negative (Negative) 10/29/23 20: Urine Bilirubin Negative (Negative) 10/29/23 20: Urine Urobilinogen 1.0 mg/dL (Negative) 10/29/23 20:28 Ur Leukocyte Esterase Trace (Negative) A 10/29/23 20:28 Urine RBC 0-2 /hpf (0-2) 10/29/23 20:28 Urine WBC 0-5 /hpf (0-5) 10/29/23 20:28 Ur Squamous Epith Cells 0-5 /hpf (0-5) 10/29/23 20:28 Amorphous Sediment Not Reportable 10/29/23 20:28 Urine Bacteria None seen /hpf (NONE) 10/29/23 20:28 Hyaline Casts 0.40 /lpf 10/29/23 20:28 SARS-CoV-2 Ag (Rapid) negative (Negative) 10/29/23 19:05 All radiology interpretation(s) finalized by discharge EKG Data EKG 1: I personally reviewed and interpreted this EKG as follows: Interpretation: Contemporaneous review of resting EKG reveals ventricular rate of 85 bpm. Normal MD interval, QRS duration, corrected QT interval. Consistent with sinus rhythm. He has changes consistent suggestive of a pulmonary disease pattern and an incomplete right bundle branch block. This tracing looks essentially unchanged from prior tracing from 2021 available within our system. Discharge Plan Discharge Patient Disposition: Placed in Observation Clinical Impression: Pneumonia Condition: Stable Prescriptions: No Action aspirin 325 mg tablet 325 mg PO DAILY cholecalciferol (vitamin D3) 50 mcg (2,000 unit) capsule 50 mcg PO DAILY tramadol 50 mg tablet 50 mg PO BID PRN (Reason: pain) 7 Days Qty: 14 0RF amlodipine 2.5 mg tablet 2.5 mg PO DAILY Qty: 90 3RF valacyclovir 500 mg tablet 500 mg PO DAILY Qty: 5 0RF Rx Instructions: Take 1 tablet by mouth every day for 5 days. omeprazole 40 mg capsule,delayed release(DR/EC) See Rx Instructions .ROUTE .COMPLEX Qty: 90 2RF Dose Instruction: take 1 capsule BY MOUTH EVERY DAY Rx Instructions: take 1 capsule BY MOUTH EVERY DAY valsartan 320 mg tablet See Rx Instructions .ROUTE .COMPLEX Qty: 90 1RF Dose Instruction: TAKE 1 TABLET BY MOUTH EVERY DAY Rx Instructions: TAKE 1 TABLET BY MOUTH EVERY DAY Coricidin HBP Max Cold-Flu D-N 6.25 mg-10 mg- 325 mg (nt) Capsule, Sequential See Rx Instructions .ROUTE .COMPLEX Rx Instructions: as directed Referrals: Cortes Andrade, [Primary Care Provider] - Coding Level of Care Code ED Subassembly Assembler for Chg Fwd
--- NOTE | 2023-10-29 19:08 | ECG_ITS ---
[facility] Test Date: 2023-10-29 Pat Name: Lawanda Bernstein Department: Room: Gender: Female Family Preservation Worker: : 1940 Requested By: Bernardo Reid Order Number: [id number] Pete MD: Swapnil Chun M.D. Measurements Intervals [place] Rate: 85 P: 77 ME: 193 QRS: -24 QRSD: 101 T: 68 QT: 366 QTc: 435 Interpretive Statements SINUS RHYTHM LOW QRS VOLTAGE IN PRECORDIAL LEADS [QRS DEFLECTION < 1.0 mV IN CHEST LEADS] PATTERN CONSISTENT WITH PULMONARY DISEASE INCOMPLETE RIGHT BUNDLE BRANCH BLOCK [90+ ms QRS DURATION, TERMINAL R IN V1/V2, 40+ ms S IN I/aVL/V4/V5/V6] SEPTAL MYOCARDIAL INFARCTION , OF INDETERMINATE AGE [40+ ms Q WAVE IN V1/V2] Compared to ECG 01/20/2022 15:33:33 Incomplete right bundle-branch block now present Myocardial infarct finding now present Left-axis deviation no longer present Left ventricular hypertrophy no longer present ST (T wave) deviation no longer present Electronically Signed On 10-30-2023 7:51:40 CDT by Swapnil Chun M.D. [id number]
[2023-10-29 19:31] LABS: Basophils % 0.2 %; Eosinophils # 0.1 10^3/uL (0.0-0.8); Eosinophils % 0.5 %; Hematocrit 40.8 % (36-47); Lymphocytes # 0.9 10^3/uL (0.8-4.8); Lymphocytes % 7.2 %; Mean Corpuscular HGB Conc 35.5 g/dL (30-55); Mean Corpuscular Hemoglobin 31.7 pg (27-33); Mean Corpuscular Volume 89.3 fl (85-98); Mean Platelet Volume 9.7 fL (7.4-10.4); Monocytes # 0.4 10^3/uL (0.2-0.9); Monocytes % 2.8 %; Neutrophils # 11.45 10^3/uL (1.8-7.7); Neutrophils % 89.1 %; Nucleated Red Blood Cells % 0 %; Platelet Count 282 10^3/cmm (157-399); Red Blood Count 4.57 10^6/uL (3.85-5.65); Red Cell Distribution Width 12.7 % (12.1-15.1); White Blood Count 12.84 10^3/uL (3.29-11.43)
[2023-10-29] MEDS: sodium chloride 0.9% 1,000 ML 999 ML IV (19:34)
[2023-10-29 19:49] LABS: SARS Covid-2 Antigen negative (Negative)
[2023-10-29 19:51] LABS: Lactic Sepsis W/Reflex 3.1 mmol/L (0.5-2.2)
[2023-10-29 20:02] LABS: Alanine Aminotransferase 19 U/L (0-33); Albumin Level 4.3 g/dL (3.5-5.2); Alkaline Phosphatase 82 U/L (35-105); Anion Gap 16.1 (5-19); Aspartate Amino Transferase 17 U/L (0-32); Blood Urea Nitrogen 14 mg/dL (8-23); Calcium 9.3 mg/dL (8.5-10.5); Carbon Dioxide 28 mmol/L (22-29); Chloride 90 mmol/L (98-107); Creatinine Clr Calc Pharmacy 51.4072; Globulin 2.3 g/dL (1.3-4.6); Glucose 95 mg/dL (65-115); Lipase 15 U/L (13-60); NT Pro B Type Natriuretic Pept 124 pg/mL (0-450); Osmolality Calculated 272 mOsm/kg (285-295); Potassium 3.1 mmol/L (3.5-5.1); Sodium 131 mmol/L (136-145); Total Protein 6.6 g/dL (6.6-8.7)
[2023-10-29] MEDS: lactated ringers 1,000 ML 999 ML IV (20:14)
[2023-10-29] MEDS: acetaminophen 325 mg Tablet 650 MG PO (20:15)
--- NOTE | 2023-10-29 20:33 | CTR_ITS ---
PROCEDURE INFORMATION: Exam: CT Abdomen And Pelvis With Contrast Exam date and time: 10/29/2023 8:42 PM Age: 82 years old Clinical indication: Abdominal pain; Additional info: Abdominal pain with fever TECHNIQUE: Imaging protocol: Computed tomography of the abdomen and pelvis with contrast. Radiation optimization: All CT scans at this facility use at least one of these dose optimization techniques: automated exposure control; mA and/or kV adjustment per patient size (includes targeted exams where dose is matched to clinical indication); or iterative reconstruction. Contrast material: OMNI 350; Contrast volume: 100 ml; Contrast route: INTRAVENOUS (IV); COMPARISON: CR (CHEST, ) 10/29/2023 7:23 PM RADIATION DOSE METRICS: Total DLP (mGy-cm): 669 FINDINGS: Lungs: Ground-glass opacities within left lung base concerning for infectious/inflammatory etiology. Heart: Small pericardial effusion. Coronary arteries: Coronary artery calcifications. Liver: Hypoattenuating hepatic foci likely representing cysts. Gallbladder and biliary ducts: Normal. No calcified stones. No ductal dilation. Pancreas: Normal. No ductal dilation. Spleen: Normal. No splenomegaly. Adrenal glands: Normal. No mass. Kidneys and ureters: Normal. No hydronephrosis. Stomach and bowel: Large colonic stool burden. No obstruction. No mucosal thickening. Appendix: No evidence of appendicitis. Intraperitoneal space: Unremarkable. No free air. No significant fluid collection. Vasculature: Moderate diffuse atherosclerotic calcifications. Lymph nodes: Unremarkable. No enlarged lymph nodes. Urinary bladder: Unremarkable as visualized. Reproductive: Unremarkable as visualized. Bones/joints: Unremarkable. No acute fracture. Soft tissues: Unremarkable. CT/CT abdomen pelvis w con* [id number] IMPRESSION: 1. No acute findings within the abdomen or pelvis. 2. Large colonic stool burden. 3. Ground-glass opacities within left lung base concerning for infectious/inflammatory etiology.
[2023-10-29 20:36] LABS: Charge for UA Resulting for Rev
[2023-10-29 20:41] LABS: Bilirubin Urine Negative (Negative); Blood Urine Negative (Negative); Glucose Urine UA Negative (Normal); Ketones Urine Trace (Negative); Leukocyte Esterase Urine Trace (Negative); Nitrate Urine Negative (Negative); Protein Urine Negative (Negative); Specific Gravity, Urine 1.013 (1.005-1.030); Urine Appearance Clear (CLEAR); Urine Color Yellow (Yellow)
[2023-10-29 20:46] LABS: Bacteria Urine None Seen /hpf; RBC Urine 0-2 /hpf (0-2); Squamous Epithelial Cell Urine 0-5 /hpf (0-5); WBC Urine 0-5 /hpf (0-5)
[2023-10-29] MEDS: iohexol 350 mg/mL 500 mL Btl (per mL) IV (20:52)
[2023-10-29 21:08] LABS: Reflex Lactate Order REFLEX LACTIC ORDERD
--- NOTE | 2023-10-29 21:16 | P.HP_ITS ---
Providers/Chief Complaint 2 Primary Care Provider: Cortes Andrade DO Chief Complaint: n/v weakness History of Present Illness Lawanda Bernstein is a 82 year old female with a past medical history significant for hypertension, hyperlipidemia, GERD, and sarcoidosis who presents to the emergency department with fevers and chills. Patient states she was in her usual state of health until the past couple days with a mild nonproductive cough. She underwent an EGD due to GI issues. Prior to the EGD she reports she received albuterol treatment which produced coughing distress. She proceeded to undergo EGD which showed inflammation. She was discharged to home. At home she developed nausea with an episode of emesis as well as fevers, chills, and productive cough. In the emergency department, patient was found to be febrile to 103.1. Labs revealed leukocytosis of 12.84, hyponatremia 131, hypokalemia 3.1, hypochloremia 90, and lactic acidosis 3.1. Imaging revealed groundglass opacities in the left lung base concerning for pneumonia. She was started on broad-spectrum antibiotics. Review of Systems 2 Narrative: A complete review of systems was obtained and is negative except as stated in HPI. Medications/Allergies Home Medications Medication Instructions Recorded Confirmed Last Taken Type aspirin 325 mg tablet 325 mg PO DAILY 03/11/21 08/22/22 01/20/22 History cholecalciferol (vitamin D3) 50 50 mcg PO DAILY 03/11/21 08/22/22 01/20/22 History mcg (2,000 unit) capsule doxylamine 6.25 mg-DM 10 See Rx Instructions .Route .COMPLEX 01/20/22 08/22/22 01/19/22 History mg-acetaminophen 325 mg (nt)-GG capsules,seq (Coricidin HBP Max Cold-Flu Day-Night) amlodipine 2.5 mg tablet 2.5 mg PO DAILY #90 tabs 04/23/22 08/22/22 Unknown Rx tramadol 50 mg tablet 50 mg PO BID PRN pain 7 days #14 08/22/22 08/22/22 Unknown Rx tabs valacyclovir 500 mg tablet 500 mg PO DAILY #5 tabs 09/23/22 Unknown Rx omeprazole 40 mg capsule,delayed See Rx Instructions .Route 10/20/22 Unknown Rx release .COMPLEX #90 caps valsartan 320 mg tablet See Rx Instructions .Route 01/13/23 Unknown Rx .COMPLEX #90 tabs Allergies Allergy/AdvReac Type Severity Reaction Status Date / Time No Known Allergies Allergy Verified 08/22/22 14:24 PFSH Acute 2 PFSH: Medical History (Updated 10/29/23 @ 21:41 by Thanh Torres MD) Dysphagia Seasonal allergies Dysuria Acute bacterial sinusitis Screening for cervical cancer Swelling of multiple joints Pain, joint, multiple sites Establishing care with new doctor, encounter for Mixed dyslipidemia Essential hypertension Rheumatoid factor positive Positive JANET (antinuclear antibody) H/O sarcoidosis Surgical History History of partial hysterectomy Family History Father Heart disease Mother Heart disease Social History Smoking and tobacco/nicotine status: never used tobacco/nicotine Alcohol intake: never Substance/Drug Use: never Female Reproductive History: Spontaneous abortions: No Vitals/I&O/Wt Last Vital Signs Temp 101.4 F H 10/29/23 20:02 Pulse 89 10/29/23 20:02 Resp 18 10/29/23 20:02 BP 114/71 10/29/23 20:02 Pulse Ox 95 10/29/23 20:02 O2 Del Method Nasal Cannula 10/29/23 20:02 O2 Flow Rate 2 10/29/23 20:02 Weight last 48 hrs Weight 77.111 kg Physical Exam 2 Narrative: General: Patient is awake and alert. Very pleasant. Head: Normocephalic. Atraumatic. EOM intact. Dry mucous membranes. Neck: No JVD. Cardiovascular: RRR. No gallops. No murmurs. Trace pedal edema. Lungs: Breath sounds diminished bilateral bases. Very faint rhonchi in left lung base. No crackles or wheezing. No rales. Skin: No jaundice. No rashes. Abdomen: Normal bowel sounds, abdomen soft and nontender. Genito Urinary: Genital exam not performed since complaints not related. Rectal: Rectal exam not performed since no symptoms indicated blood loss. Extremities: No cyanosis or clubbing. Musculoskeletal: No swollen or erythematous joints. Neurological: Moves all 4 extremities. No myoclonus. Data 10/29/23 19:05 10/29/23 19:05 Micro: Microbiology 10/29/23 19:17 Blood Culture - Preliminary Blood SPECIMEN COLLECTED 10/29/23 19:13 Blood Culture - Preliminary Blood SPECIMEN COLLECTED A&P Assessment and plan (1) Sepsis: Source: Febrile, leukocytosis Source: Pneumonia Lactic acid noted Blood cultures x 2 Start broad-spectrum antibiotics with pneumonia coverage Continuous telemetry Hold off on full 30 mL/kg IV fluid bolus due to history of heart failure Strict I's and O's Daily weights (2) Pneumonia: Left lower [employer] pneumonia, suspected aspiration pneumonia Status post ceftriaxone/azithromycin Continue current antibiotics Aspiration precautions Qualifiers: Laterality: bilateral Lung location: unspecified part of lung P neumonia type: due to unspecified organism Qualified Code(s): J18.9 - Pneumonia, unspecified organism (3) Hypokalemia: Likely secondary to nausea and vomiting Replace with IV potassium Repeat labs in a.m. Telemetry monitoring (4) Lactic acidosis: Lactic acidosis secondary to sepsis Treat underlying sepsis (5) Nausea and vomiting: Antiemetics as needed Tailor diet to symptoms (6) Hyponatremia: Hypovolemic hyponatremia secondary to nausea/vomiting and sepsis Receiving IV fluids Repeat labs in a.m. (7) GERD without esophagitis: Continue PPI treatment (8) Heart failure with preserved ejection fraction: Chronic heart failure with preserved ejection fraction without exacerbation Strict I's and O's Daily weights Daily assessments of volume Plan DVT prophylaxis: Lovenox Attestations 2 Medical Necessity Statement*: Patient presents with fever and chills, found to have sepsis secondary to community-acquired pneumonia, suspected aspiration, hypokalemia and multiple other metabolic derangements with expected hospitalization not to cross 2 midnights for IV antibiotics, IV fluid rehydration, correction of electrolytes, and supportive care. Coding Level of Care Code Acute Code for [facility] Fwd Diagnoses Sepsis A41.9 Pneumonia J18.9 Laterality: bilateral Lung location: unspecified part of lung Pneumonia type: due to unspecified organism Hypokalemia E87.6 Lactic acidosis E87.20 Nausea and vomiting R11.2 Hyponatremia E87.1 GERD without esophagitis K21.9 Heart failure with preserved ejection fraction I50.30
[2023-10-29] MEDS: cefTRIAXone 2,000 mg SDV 2000 MG IVP (21:32)
[2023-10-29] MEDS: azithromycin 500 MG in sodium chloride 0.9% 250 ML 250 MG IV (21:33)
[2023-10-29] MEDS: pantoprazole 40 mg SDV IVP (22:51)
[2023-10-29] MEDS: potassium chloride premix 100 ML 25 MEQ IV (23:00)
[2023-10-29 23:13] LABS: Procalcitonin 0.06 ng/mL (0-0.5)
[2023-10-29 23:31] LABS: Lactic Acid level (Lactate) 2.2 mmol/L (0.5-2.2)
[2023-10-30] VITALS (9 sets, daily range): BP systolic 88–115; BP diastolic 47–68; PULSE 61–79; RESP 12–18; TEMP 36.4–37.3; O2SAT 92–94
[2023-10-30] MEDS: potassium chloride ER 20 mEq Tablet PO (00:03)
[2023-10-30 05:10] LABS: Basophils % 0.2 %; Hematocrit 35.8 % (36-47); Lymphocytes # 1.3 10^3/uL (0.8-4.8); Lymphocytes % 5.9 %; Mean Corpuscular HGB Conc 34.4 g/dL (30-55); Mean Corpuscular Hemoglobin 31.6 pg (27-33); Mean Platelet Volume 9.6 fL (7.4-10.4); Monocytes # 1.1 10^3/uL (0.2-0.9); Neutrophils # 19.52 10^3/uL (1.8-7.7); Nucleated Red Blood Cells % 0 %; Platelet Count 204 10^3/cmm (157-399); Red Blood Count 3.89 10^6/uL (3.85-5.65); White Blood Count 22.19 10^3/uL (3.29-11.43)
[2023-10-30 05:33] LABS: Alanine Aminotransferase 13 U/L (0-33); Albumin Level 3.1 g/dL (3.5-5.2); Alkaline Phosphatase 62 U/L (35-105); Anion Gap 15.2 (5-19); Aspartate Amino Transferase 15 U/L (0-32); Blood Urea Nitrogen 13 mg/dL (8-23); Calcium 7.9 mg/dL (8.5-10.5); Carbon Dioxide 24 mmol/L (22-29); Chloride 101 mmol/L (98-107); Creatinine Clr Calc Pharmacy 47.5302; Globulin 1.9 g/dL (1.3-4.6); Glucose 115 mg/dL (65-115); Osmolality Calculated 283 mOsm/kg (285-295); Potassium 4.2 mmol/L (3.5-5.1); Sodium 136 mmol/L (136-145); Total Bilirubin 0.9 mg/dL (0.15-1.2)
--- NOTE | 2023-10-30 09:23 | PC.PHAR ---
PT FINISHED HER ANTIBIOTIC
[2023-10-30] MEDS: pantoprazole 40 mg SDV IVP ×2 (11:02→21:38)
[2023-10-30] MEDS: aspirin 81 mg EC Tablet PO (13:58)
[2023-10-30] MEDS: cefTRIAXone 1,000 mg SDV 1000 MG IVP (18:08)
[2023-10-30] MEDS: water for injection-sterile 10 ML 240 ML (18:08)
[2023-10-30] MEDS: azithromycin 500 MG in sodium chloride 0.9% 250 ML 250 MG IV (18:14)
--- NOTE | 2023-10-30 22:50 | P.PN_ITS ---
Subjective 2 Subjective: She is having some cough, also gets recurrent reflux symptoms, especially when she sleeps at night. She does avoid any spicy and acidic foods, does not drink alcohol, does not take NSAIDs. Last meal was around 530, goes to bed around 930. Elevate head of bed. Has had an EGD with finding of gastritis. Omeprazole dose has been increased. Vitals/I&O/Wt Last Vital Signs Temp 98.9 F 10/30/23 19:38 Pulse 61 10/30/23 22:26 Resp 18 10/30/23 19:38 BP 115/66 10/30/23 19:38 Pulse Ox 94 10/30/23 19:38 O2 Del Method Room Air 10/30/23 19:38 O2 Flow Rate 2 10/29/23 21:30 10/30/23 10/30/23 10/30/23 06:59 14:59 22:59 Intake Total 1463.333 / 2463.333 990 / 990 Balance 1463.333 / 2463.333 990 / 990 Weight last 48 hrs Weight 81.647 kg Weight 80.739 kg Weight 77.111 kg Physical Exam 2 Const: COMMON NORMALS: patient oriented x3 and alert GENERAL APPEARANCE: c ooperative ORIENTATION/CONSCIOUSNESS: Yes awake HENMT: COMMON NORMALS: oropharynx normal Neck/C-Spine: COMMON NORMALS: no JVD Resp: COMMON NORMALS: normal respiratory effort AUSCULTATION: crackles Laterality: left (lower) Cardio: COMMON NORMALS: no JVD, regular rhythm, S1 normal heart sound present, S2 normal heart sound present and No murmurs present (Cardio) RHYTHM: regular rhythm HEART SOUNDS: S1 normal heart sound present and S2 normal heart sound present GI: COMMON NORMALS: Normal to inspection, nondistended, normoactive bowel sounds present, Soft to palpation and non-tender PALPATION: Yes Soft to palpation Extremity: COMMON NORMALS: no joint enlargement and no pedal edema Neuro: COMMON NORMALS: patient oriented x3 and moves all extremities S ENSORIUM/ORIENTATION: Yes alert Skin: COMMON NORMALS: no rashes or lesions noted GENERAL SKIN EXAM: no rashes or lesions noted Data 10/30/23 04:07 10/30/23 04:07 Micro: Microbiology 10/29/23 19:17 Blood Culture - Preliminary Blood NEGATIVE TO DATE 10/29/23 19:13 Blood Culture - Preliminary Blood NEGATIVE TO DATE 10/30/23 07:39 Bacterial Antigens - Final Urine,Voided A&P Assessment and plan (1) Sepsis: With worsening leukocytosis today up to 22.2. But so far without recurrence of fever. Discussed with her, she was considering about trying to go home today, however, agreeable to stay to continue treatment. Nausea and vomiting have resolved. Continue ceftriaxone and azithromycin. She does have recurrent heartburn as well, contact gastritis on EGD. Continue high-dose PPI. Add sucralfate. Discussed with her strategies to reduce reflux. In case of lack of improvement of symptoms, she understands should try to seek follow-up with gastroenterology. Reviewed vitals, CBC, BMP, blood Gram stain. CT abdomen pelvis, chest x-ray. Source: Febrile, leukocytosis Source: Pneumonia Lactic acid noted Blood cultures x 2 Start broad-spectrum antibiotics with pneumonia coverage (2) Pneumonia: Continue ceftriaxone and azithromycin. Follow-up blood culture. Monitor oxygenation. Left lower [employer] pneumonia, suspected aspiration pneumonia Status post ceftriaxone/azithromycin Continue current antibiotics Aspiration precautions Qualifiers: Laterality: bilateral Lung location: unspecified part of lung P neumonia type: due to unspecified organism Qualified Code(s): J18.9 - Pneumonia, unspecified organism (3) Nausea and vomiting: Gastritis, recurrent GERD symptoms. Continue PPI twice daily, will change to oral. Add sucralfate. Antiemetics as needed Tailor diet to symptoms (4) Hypokalemia: Reviewed magnesium, and is okay. Recheck BMP. Likely secondary to nausea and vomiting Replace with IV potassium Repeat labs in a.m. Telemetry monitoring (5) Lactic acidosis: Lactic acidosis secondary to sepsis Treat underlying sepsis (6) Hyponatremia: Reviewed sodium, hyponatremia improved. Off IV fluids. Hypovolemic hyponatremia secondary to nausea/vomiting and sepsis Repeat labs in a.m. (7) GERD without esophagitis: Continue PPI treatment. Switch to 40 mg twice daily pantoprazole by mouth. (8) Heart failure with preserved ejection fraction: Chronic heart failure with preserved ejection fraction without exacerbation Strict I's and O's Daily weights Daily assessments of volume Plan DVT prophylaxis: Lovenox Attestations 2 Medical Necessity Statement*: Continue admission for assessment and management of sepsis, pneumonia. Diagnoses Sepsis A41.9 Pneumonia J18.9 Laterality: bilateral Lung location: unspecified part of lung Pneumonia type: due to unspecified organism Nausea and vomiting R11.2 Hypokalemia E87.6 Lactic acidosis E87.20 Hyponatremia E87.1 GERD without esophagitis K21.9 Heart failure with preserved ejection fraction I50.30
[2023-10-31] MEDS: acetaminophen 500 mg Tablet 1000 MG PO (01:47)
[2023-10-31 04:00] VITALS: BP 102/59; PULSE 60; RESP 12; TEMP 37.3; O2SAT 93
[2023-10-31 04:02] LABS: Basophils % 0.3 %; Eosinophils # 0.3 10^3/uL (0.0-0.8); Eosinophils % 2.8 %; Hematocrit 31.6 % (36-47); Lymphocytes # 1.5 10^3/uL (0.8-4.8); Lymphocytes % 12.8 %; Mean Corpuscular HGB Conc 35.1 g/dL (30-55); Mean Corpuscular Hemoglobin 31.9 pg (27-33); Mean Corpuscular Volume 90.8 fl (85-98); Mean Platelet Volume 9.8 fL (7.4-10.4); Monocytes # 0.7 10^3/uL (0.2-0.9); Monocytes % 5.8 %; Neutrophils # 9.24 10^3/uL (1.8-7.7); Nucleated Red Blood Cells % 0 %; Platelet Count 179 10^3/cmm (157-399); Red Blood Count 3.48 10^6/uL (3.85-5.65); Red Cell Distribution Width 13.1 % (12.1-15.1); White Blood Count 11.85 10^3/uL (3.29-11.43)
[2023-10-31 04:18] LABS: Blood Urea Nitrogen 9 mg/dL (8-23); Calcium 7.5 mg/dL (8.5-10.5); Carbon Dioxide 24 mmol/L (22-29); Chloride 102 mmol/L (98-107); Creatinine Clr Calc Pharmacy 59.9815; Glucose 124 mg/dL (65-115); Osmolality Calculated 282 mOsm/kg (285-295); Sodium 136 mmol/L (136-145)
[2023-10-31 04:26] LABS: Anion Gap 13.6 (5-19); Potassium 3.6 mmol/L (3.5-5.1)
[2023-10-31] MEDS: sucralfate 1 gm Tablet PO ×3 (06:37→20:44)
[2023-10-31 07:09] VITALS: BP 101/63; PULSE 55; RESP 18; TEMP 36.3; O2SAT 97
[2023-10-31] MEDS: pantoprazole DR 40 mg Tablet PO ×2 (09:06→17:17)
[2023-10-31] MEDS: aspirin 81 mg EC Tablet PO (09:06)
[2023-10-31 11:28] VITALS: BP 144/72; PULSE 59; RESP 20; TEMP 36.4; O2SAT 97
[2023-10-31 13:08] LABS: D Dimer 0.74 ug/mLFEU (0-0.59)
--- NOTE | 2023-10-31 13:49 | ECG_ITS ---
[facility] Test Date: 2023-10-31 Pat Name: Lawanda Bernstein Department: Room: 251 Gender: Female [employer]ner: : 1940 Requested By: Yariel Mariscal Order Number: [id number] Reading MD: GUILLERMINA JETT Measurements Intervals [place] Rate: 57 P: 60 NE: 193 QRS: -20 QRSD: 94 T: 47 QT: 427 QTc: 418 Interpretive Statements SINUS BRADYCARDIA LOW QRS VOLTAGE IN PRECORDIAL LEADS [QRS DEFLECTION < 1.0 mV IN CHEST LEADS] PATTERN CONSISTENT WITH PULMONARY DISEASE Compared to ECG 10/29/2023 19:08:22 Sinus rhythm no longer present Incomplete right bundle-branch block no longer present Myocardial infarct finding no longer present Electronically Signed On 10-31-2023 20:27:33 CDT by GUILLERMINA JETT [id number]
--- NOTE | 2023-10-31 14:46 | CTR_ITS ---
PROCEDURE INFORMATION: Exam: CTA Chest With Contrast Exam date and time: 10/31/2023 3:36 PM Age: 82 years old Clinical indication: Pain; Chest pressure; Patient HX: Chest discomfort, dry cough, abnormal ddimer, assess for pe; Additional info: Chest discomfort, dry cough, abnormal dimer, assess for pe TECHNIQUE: Imaging protocol: Computed tomographic angiography of the chest with contrast. Exam focused on the arteries. 3D rendering (Not supervised by radiologist): MIP and/or 3D reconstructed images were created by the technologist. Radiation optimization: All CT scans at this facility use at least one of these dose optimization techniques: automated exposure control; mA and/or kV adjustment per patient size (includes targeted exams where dose is matched to clinical indication); or iterative reconstruction. Contrast material: OMNIPAQUE 350; Contrast volume: 75 ml; Contrast route: INTRAVENOUS (IV); COMPARISON: 1. CR (CHEST, ) 10/29/2023 7:[address] abdomen pelvis w con* [id number] 10/29/2023 8:42 PM RADIATION DOSE METRICS: Total DLP (mGy-cm): 340.05 FINDINGS: Pulmonary arteries: There is no evidence of filling defects within the pulmonary arterial circulation to suggest pulmonary embolism. Aorta: There is mild ectasia of the ascending thoracic aorta which measures 4 cm. There is no thoracic aortic aneurysm or dissection. Lungs: There is increasing infiltrate and consolidation posterior left lower lobe compared with 10/29/2023. This is consistent with pneumonia. There is mild dependent atelectasis at both lung bases. Pleural spaces: There are small bilateral pleural effusions. Heart: There is small pericardial effusion, larger than the previous examination. Coronary arteries: There is moderate atherosclerotic calcification of the coronary arteries. Lymph nodes: There is mild paratracheal and subcarinal adenopathy with subcarinal adenopathy measuring up to 12 x 23 mm. There are calcified left hilar lymph nodes in keeping with old granulomatous disease. Diaphragm: There is a small hiatal hernia. Bones/joints: There is no evidence of acute fracture. Soft tissues: Unremarkable. CT/CT angio chest PE protcl [id number] IMPRESSION: 1. Increasing left lower lobe pneumonia 2. Small pleural effusion is 3. No evidence of pulmonary embolism.
[2023-10-31] MEDS: iohexol 350 mg/mL 500 mL Btl (per mL) IV (15:42)
[2023-10-31 15:54] VITALS: BP 134/77; PULSE 57; RESP 19; TEMP 36.4; O2SAT 98
[2023-10-31] MEDS: piperacillin-tazobactam 3.375 GM in sodium chloride 0.9% (plus) 50 ML IV (18:02)
[2023-10-31 19:21] VITALS: BP 136/79; PULSE 60; RESP 17; TEMP 36.8; O2SAT 94
--- NOTE | 2023-10-31 20:05 | P.PN_ITS ---
Subjective 2 Subjective: She is still having dry cough. Some chest tightness. Vitals/I&O/Wt Last Vital Signs Temp 98.2 F 10/31/23 19:21 Pulse 60 10/31/23 19:21 Resp 17 10/31/23 19:21 BP 136/79 10/31/23 19:21 Pulse Ox 94 10/31/23 19:21 O2 Del Method Room Air 10/31/23 19:21 O2 Flow Rate 2 10/29/23 21:30 10/31/23 10/31/23 10/31/23 06:59 14:59 22:59 Intake Total 480 / 480 261.25 / 741.25 Balance 480 / 480 261.25 / 741.25 Weight last 48 hrs Weight 83.28 kg Weight 81.647 kg Weight 80.739 kg Physical Exam 2 Narrative: Accompanied by her daughter. Const: COMMON NORMALS: patient oriented x3 and alert GENERAL APPEARANCE: c ooperative ORIENTATION/CONSCIOUSNESS: Yes awake HENMT: COMMON NORMALS: oropharynx normal Neck/C-Spine: COMMON NORMALS: no JVD Resp: COMMON NORMALS: normal respiratory effort AUSCULTATION: crackles Laterality: left (lower) Cardio: COMMON NORMALS: no JVD, regular rhythm, S1 normal heart sound present, S2 normal heart sound present and No murmurs present (Cardio) RHYTHM: regular rhythm HEART SOUNDS: S1 normal heart sound present and S2 normal heart sound present GI: COMMON NORMALS: Normal to inspection, nondistended, normoactive bowel sounds present, Soft to palpation and non-tender PALPATION: Yes Soft to palpation Extremity: COMMON NORMALS: no joint enlargement and no pedal edema Neuro: COMMON NORMALS: patient oriented x3 and moves all extremities S ENSORIUM/ORIENTATION: Yes alert Skin: COMMON NORMALS: no rashes or lesions noted GENERAL SKIN EXAM: no rashes or lesions noted Data 10/31/23 03:30 10/31/23 03:30 Micro: Microbiology 10/29/23 19:17 Blood Culture - Preliminary Blood NEGATIVE TO DATE 10/29/23 19:13 Blood Culture - Preliminary Blood NEGATIVE TO DATE A&P Assessment and plan (1) Sepsis: Reviewed vitals, CBC, D-dimer obtained, reviewed, reviewed BMP, obtain CTA chest. Discussed with her and her daughter. Discussed with nursing. Improvement in sepsis, leukocytosis down to 11.85. Noted abnormal D-dimer. Discussed risk of contrast-induced nephropathy with CTA,CTA obtained, no PE noted but is noted to have worsening pneumonia. Reassess renal function. She still has some cough, chest tightness. EKG obtained, on my interpretation without acute RI, sinus bradycardia. Pending official read. Discussed with her and her daughter. We will continue IV antibiotics but switch to Zosyn, continue treatment and monitoring in hospital for now. Reassess in the morning. Discussed consideration of follow-up assessment with modified barium swallow. She does have recurrent heartburn as well, contact gastritis on EGD. Continue high-dose PPI. Add sucralfate. Discussed with her strategies to reduce reflux. In case of lack of improvement of symptoms, she understands should try to seek follow-up with gastroenterology. Reviewed vitals, CBC, BMP, blood Gram stain. CT abdomen pelvis, chest x-ray. Source: Febrile, leukocytosis Source: Pneumonia Lactic acid noted Blood cultures x 2 Start broad-spectrum antibiotics with pneumonia coverage (2) Pneumonia: Worsening pneumonia on CT as above. Additionally a component of chronic dry cough, discussed follow-up with pulmonary function testing for possible underlying asthma. Perhaps triggered by GERD. Left lower pneumonia, suspected aspiration pneumonia Status post ceftriaxone/azithromycin Continue current antibiotics Aspiration precautions Qualifiers: Laterality: bilateral Lung location: unspecified part of lung P neumonia type: due to unspecified organism Qualified Code(s): J18.9 - Pneumonia, unspecified organism (3) Nausea and vomiting: Gastritis, recurrent GERD symptoms. Continue PPI twice daily, will change to oral. Sucralfate. Antiemetics as needed Tailor diet to symptoms (4) Hypokalemia: Improved. Recheck BMP. Likely secondary to nausea and vomiting Replace with IV potassium Repeat labs in a.m. Telemetry monitoring (5) Lactic acidosis: Resolved Lactic acidosis secondary to sepsis Treat underlying sepsis (6) Hyponatremia: Reviewed sodium, hyponatremia improved. Off IV fluids. Hypovolemic hyponatremia secondary to nausea/vomiting and sepsis Repeat labs in a.m. (7) GERD without esophagitis: 40 mg twice daily pantoprazole by mouth. Plus sucralfate. (8) Heart failure with preserved ejection fraction: Chronic heart failure with preserved ejection fraction without exacerbation Strict I's and O's Daily weights Daily assessments of volume Plan DVT prophylaxis: Lovenox Attestations 2 Medical Necessity Statement*: Continue admission for assessment and management of worsening left lower lobe pneumonia recovering from sepsis. and High MDM includes amount and/or complexity of data reviewed/ordered [ resulted lab(s)/test(s), ordered lab(s)/test(s) and independent test interpretation] and described risk of complication, morbidity or mortality of management as documented Diagnoses Sepsis A41.9 Pneumonia J18.9 Laterality: bilateral Lung location: unspecified part of lung Pneumonia type: due to unspecified organism Nausea and vomiting R11.2 Hypokalemia E87.6 Lactic acidosis E87.20 Hyponatremia E87.1 GERD without esophagitis K21.9 Heart failure with preserved ejection fraction I50.30
[2023-10-31 23:38] VITALS: BP 114/66; PULSE 56; RESP 15; TEMP 36.8; O2SAT 93
[2023-11-01] MEDS: benzonatate 100 mg Capsule 200 MG PO (00:26)
[2023-11-01] MEDS: piperacillin-tazobactam 3.375 GM in sodium chloride 0.9% (plus) 50 ML IV (01:02)
[2023-11-01 04:00] VITALS: BP 109/63; PULSE 64; RESP 19; TEMP 36.7; O2SAT 95
[2023-11-01 04:02] LABS: Basophils % 0.4 %; Eosinophils # 0.4 10^3/uL (0.0-0.8); Eosinophils % 4.3 %; Lymphocytes # 1.3 10^3/uL (0.8-4.8); Lymphocytes % 15.9 %; Mean Corpuscular HGB Conc 34.2 g/dL (30-55); Mean Corpuscular Hemoglobin 31.4 pg (27-33); Mean Corpuscular Volume 91.7 fl (85-98); Mean Platelet Volume 9.4 fL (7.4-10.4); Monocytes # 0.5 10^3/uL (0.2-0.9); Monocytes % 5.6 %; Neutrophils # 6.08 10^3/uL (1.8-7.7); Neutrophils % 73.4 %; Nucleated Red Blood Cells % 0 %; Platelet Count 185 10^3/cmm (157-399); Red Cell Distribution Width 12.8 % (12.1-15.1); White Blood Count 8.28 10^3/uL (3.29-11.43)
[2023-11-01 04:23] LABS: Anion Gap 12.7 (5-19); Blood Urea Nitrogen 6 mg/dL (8-23); Calcium 7.9 mg/dL (8.5-10.5); Carbon Dioxide 24 mmol/L (22-29); Chloride 103 mmol/L (98-107); Creatinine Clr Calc Pharmacy 59.9815; Glucose 94 mg/dL (65-115); Osmolality Calculated 279 mOsm/kg (285-295); Potassium 3.7 mmol/L (3.5-5.1); Sodium 136 mmol/L (136-145)
[2023-11-01] MEDS: sucralfate 1 gm Tablet PO (06:02)
[2023-11-01 07:13] VITALS: BP 124/67; PULSE 66; RESP 18; TEMP 36.4; O2SAT 96
[2023-11-01] MEDS: pantoprazole DR 40 mg Tablet PO (09:57)
[2023-11-01] MEDS: aspirin 81 mg EC Tablet PO (09:57)
--- NOTE | 2023-11-01 10:10 | P.DS_ITS ---
Discharge Providers Date of Admission: 10/30/23 15:16 Date of Discharge: November 01, 2023 Attending Provider at Admission: Thanh Torres MD Attending Provider at Discharge: Yariel Mariscal Primary Care Provider: Carmelo Bravo MD Diagnoses at Discharge Discharge Diagnosis (1) Sepsis: Status: Acute (2) Pneumonia: Status: Acute Qualifiers: Laterality: bilateral Lung location: unspecified part of lung Pneumonia type: due to unspecified organism Qualified Code(s): J18.9 - Pneumonia, unspecified organism (3) Nausea and vomiting: Status: Acute (4) Hypokalemia: Status: Acute (5) Lactic acidosis: Status: Acute (6) Hyponatremia: Status: Acute (7) GERD without esophagitis: Status: Acute (8) Heart failure with preserved ejection fraction: Status: Acute Reason for Visit Reason for Visit: n/v weakness Brief History: Lawanda Bernstein is a 82 year old female with a past medical history significant for hypertension, hyperlipidemia, GERD, and sarcoidosis who presents to the emergency department with fevers and chills. Patient states she was in her usual state of health until the past couple days with a mild nonproductive cough. She underwent an EGD due to GI issues. Prior to the EGD she reports she received albuterol treatment which produced coughing distress. She proceeded to undergo EGD which showed inflammation. She was discharged to home. At home she developed nausea with an episode of emesis as well as fevers, chills, and productive cough. Hospital Course Hospital Course She was treated with IV antibiotics in hospital with ceftriaxone, azithromycin, D-dimer was obtained due to dry cough which she states has had a chronic component to it for several months. She does report recurrent GERD symptoms. Continued on PPI. Sucralfate was added. D-dimer returned mildly abnormal at 0.74 with chronic nonproductive cough assessed by CTA. No PE was seen but was noted to have worsening pneumonia. Antibiotics switched over to Zosyn for possible aspiration pneumonia, however, without further worsening, afebrile, without leukocytosis and feeling much better today. She is discharging and will complete course of antibiotic with Levaquin. Is additionally referred for assessment by modified barium swallow to assess for any silent aspiration. He is to continue efforts to reduce overnight reflux, in addition to PPI and sucralfate also avoid any meals 4 to 6 hours prior to sleep, elevate head of bed, avoid any foods that may relax LES. Once she recovers from pneumonia would benefit from referral for pulmonary function testing to further assess chronic cough if still present. Mild hypokalemia, hyponatremia improved. During hospitalization also noted to have low blood pressure, blood pressure initially as low as 88/47. Antihypertensives were held. Initially received IV fluids which were discontinued. Of antihypertensives blood pressure improved but still only as high as 140/72, today 109/63, 120/67. She is asked to discontinue HCTZ for now. Valsartan dose is reduced to 40 mg twice daily with holding parameters. Also discussed with her in case blood pressure keeps rising she may take extra valsartan. Please reassess blood pressures, adjust medications for further needs. Physical Exam Narrative: Accompanied by her daughter. Const: COMMON NORMALS: patient oriented x3 and alert GENERAL APPEARANCE: cooperative ORIENTATION/CONSCIOUSNESS: Yes awake HENMT: COMMON NORMALS: oropharynx normal Neck/C-Spine: COMMON NORMALS: no JVD Resp: COMMON NORMALS: normal respiratory effort AUSCULTATION: crackles (Resolving) Laterality: left (lower) Cardio: COMMON NORMALS: no JVD, regular rhythm, S1 normal heart sound present, S2 normal heart sound present and No murmurs present (Cardio) RHYTHM: regular rhythm HEART SOUNDS: S1 normal heart sound present and S2 normal heart sound present GI: COMMON NORMALS: Normal to inspection, nondistended, normoactive bowel sounds present, Soft to palpation and non-tender PALPATION: Yes Soft to palpation Extremity: COMMON NORMALS: no joint enlargement and no pedal edema Neuro: COMMON NORMALS: patient oriented x3 and moves all extremities SENSORIUM/ORIENTATION: Yes alert Skin: COMMON NORMALS: no rashes or lesions noted GENERAL SKIN EXAM: no rashes or lesions noted Discharge Data Studies Completed and Pending Completed Studies During Hospitalization Category Date Time Status CT abdomen pelvis w con* [id number] Stat Cat Scan 10/29/23 20:33 Completed CTA chest [CT angio chest PE protcl [id number]] Routine Cat Scan 10/31/23 14:46 Completed XR chest 1V portable [id number] Stat Exams 10/29/23 18:57 Completed Pending at discharge Category Date Time Status Basic Metabolic Panel AM LABS Lab 11/02/23 04:00 Ordered Blood Culture Stat Lab 10/29/23 19:17 Results Complete Blood Count w/Auto AM LABS Lab 11/02/23 04:00 Ordered Radiology Impressions Chest X-Ray 10/29/23 18:57 IMPRESSION: Central vascular prominence without overt edema. Mild left basilar atelectasis. Abdomen/Pelvis CT 10/29/23 20:33 IMPRESSION: 1. No acute findings within the abdomen or pelvis. 2. Large colonic stool burden. 3. Ground-glass opacities within left lung base concerning for infectious/inflammatory etiology. Chest CTA 10/31/23 14:46 IMPRESSION: 1. Increasing left lower lobe pneumonia 2. Small pleural effusion is 3. No evidence of pulmonary embolism. Laboratory Results WBC 8.28 10^3/uL (3.29-11.43) 11/01/23 03:39 RBC 3.60 10^6/uL (3.85-5.65) L 11/01/23 03:39 Hgb 11.30 g/dL (11.27-16.99) 11/01/23 03:39 Hct 33.0 % (36-47) L 11/01/23 03:39 MCV 91.7 fl (85-98) 11/01/23 03:39 MCH 31.4 pg (27-33) 11/01/23 03:39 MCHC 34.2 g/dL (30-55) 11/01/23 03:39 RDW 12.8 % (12.1-15.1) 11/01/23 03:39 Plt Count 185 10^3/cmm (157-399) 11/01/23 03:39 MPV 9.4 fL (7.4-10.4) 11/01/23 03:39 Neut % (Auto) 73.4 % 11/01/23 03:39 Lymph % (Auto) 15.9 % 11/01/23 03:39 [place] % (Auto) 5.6 % 11/01/23 03:39 Eos % (Auto) 4.3 % 11/01/23 03:39 Baso % (Auto) 0.4 % 11/01/23 03:39 Neut # (Auto) 6.08 10^3/uL (1.8-7.7) 11/01/23 03:39 Lymph # (Auto) 1.3 10^3/uL (0.8-4.8) 11/01/23 03:39 [place] # (Auto) 0.5 10^3/uL (0.2-0.9) 11/01/23 03:39 Eos # (Auto) 0.4 10^3/uL (0.0-0.8) 11/01/23 03:39 Baso # (Auto) 0.0 10^3/uL (0.0-0.1) 11/01/23 03:39 Nucleated RBC % (auto) 0 % 11/01/23 03:39 Nucleated RBCs # 0.0 /100WBC 11/01/23 03:39 D-Dimer 0.74 ug/mLFEU (0-0.59) H 10/31/23 12:45 Sodium 136 mmol/L (136-145) 11/01/23 03:39 Potassium 3.7 mmol/L (3.5-5.1) 11/01/23 03:39 Chloride 103 mmol/L (98-107) 11/01/23 03:39 Carbon Dioxide 24 mmol/L (22-29) 11/01/23 03:39 Anion Gap 12.7 (5-19) 11/01/23 03:39 BUN 6 mg/dL (8-23) L 11/01/23 03:39 Creatinine 0.8 mg/dL (0.5-0.9) 11/01/23 03:39 GFR Calculation Not Reportable 11/01/23 03:39 Glucose 94 mg/dL (65-115) 11/01/23 03:39 Calculated Osmolality 279 mOsm/kg (285-295) L 11/01/23 03:39 Lactic Acid 3.1 mmol/L (0.5-2.2) H 10/29/23 19:05 Lactic Acid (Sepsis) 2.2 mmol/L (0.5-2.2) 10/29/23 22:42 Calcium 7.9 mg/dL (8.5-10.5) L 11/01/23 03:39 Phosphorus 3.0 mg/dL (2.5-4.5) 10/30/23 04:07 Magnesium 2.0 mg/dL (1.7-2.3) 10/30/23 04:07 Total Bilirubin 0.9 mg/dL (0.15-1.2) 10/30/23 04:07 AST 15 U/L (0-32) 10/30/23 04:07 ALT 13 U/L (0-33) 10/30/23 04:07 Alkaline Phosphatase 62 U/L (35-105) 10/30/23 04:07 NT-Pro-B Natriuret Pep 124 pg/mL (0-450) 10/29/23 19:05 Total Protein 5.0 g/dL (6.6-8.7) L D 10/30/23 04:07 Albumin 3.1 g/dL (3.5-5.2) L 10/30/23 04:07 Globulin 1.9 g/dL (1.3-4.6) 10/30/23 04:07 Lipase 15 U/L (13-60) 10/29/23 19:05 Procalcitonin 0.06 ng/mL (0-0.5) 10/29/23 19:05 Urine Color Yellow (Yellow) 10/29/23 20:28 Urine Appearance Clear (CLEAR) 10/29/23 20:28 Urine pH 7.0 (5-7) 10/29/23 20:28 Ur Specific [place] 1.013 (1.005-1.030) 10/29/23 20:28 Urine Protein Negative (Negative) 10/29/23 20:28 Urine Glucose (UA) Negative (Normal) 10/29/23 20:28 Urine Ketones Trace (Negative) 10/29/23 20:28 Urine Blood Negative (Negative) 10/29/23 20:28 Urine Nitrate Negative (Negative) 10/29/23 20:28 Urine Bilirubin Negative (Negative) 10/29/23 20:28 Urine Urobilinogen 1.0 mg/dL (Negative) 10/29/23 20:28 Ur Leukocyte Esterase Trace (Negative) A 10/29/23 20:28 Urine RBC 0-2 /hpf (0-2) 10/29/23 20:28 Urine WBC 0-5 /hpf (0-5) 10/29/23 20:28 Ur Squamous Epith Cells 0-5 /hpf (0-5) 10/29/23 20:28 Amorphous Sediment Not Reportable 10/29/23 20:28 Urine Bacteria None seen /hpf (NONE) 10/29/23 20:28 Hyaline Casts 0.40 /lpf 10/29/23 20:28 SARS-CoV-2 Ag (Rapid) negative (Negative) 10/29/23 19:05 Vitals Last Vital Signs Temp 97.5 F L 11/01/23 07:13 Pulse 66 11/01/23 07:13 Resp 18 11/01/23 07:13 BP 124/67 11/01/23 07:13 Pulse Ox 96 11/01/23 07:13 O2 Del Method Room Air 11/01/23 07:13 O2 Flow Rate 2 10/29/23 21:30 Discharge Plan Discharge Patient Disposition: Home Condition: Stable Prescriptions: New levofloxacin 750 mg tablet 750 mg PO DAILY 5 Days Qty: 5 0RF valsartan 40 mg tablet 40 mg PO BID Qty: 180 0RF sucralfate 1 gram Tablet 1 g PO AC&BEDTIME Qty: 90 0RF Continued cholecalciferol (vitamin D3) 50 mcg (2,000 unit) capsule 50 mcg PO DAILY omeprazole 40 mg capsule,delayed release(DR/EC) See Rx Instructions .ROUTE .COMPLEX Qty: 90 2RF Dose Instruction: take 1 capsule BY MOUTH EVERY DAY Rx Instructions: TAKE 1 CAPSULE BY MOUTH TWICE DAILY. Coricidin HBP Max Cold-Flu D-N 6.25 mg-10 mg- 325 mg (nt) Capsule, Sequential See Rx Instructions .ROUTE .COMPLEX Rx Instructions: TAKE NEEDED DIRECTED PER PACKAGE INSTRUCTIONS. cetirizine 10 mg tablet 10 mg PO DAILY aspirin 81 mg Tablet,Delayed Release (Dr/Ec) 81 mg PO DAILY Discontinued valsartan 320 mg tablet See Rx Instructions .ROUTE .COMPLEX Qty: 90 1RF Dose Instruction: TAKE 1 TABLET BY MOUTH EVERY DAY Rx Instructions: TAKE 1 TABLET BY MOUTH EVERY DAY hydrochlorothiazide 25 mg tablet 25 mg PO DAILY Discharge Orders: Discharge Order (Routine); Ordered 11/01/23 Ordered By: Yariel Mariscal Other Ambulatory Orders: [place] barium swallow modifd [id number] (Routine) Timeframe: 1 Day Facility: [facility] - Location: Radiology Ordered By: Yariel Mariscal Referrals: Carmelo Bravo MD [Primary Care Provider] - 1 week (Please call Thursday to make a follow up appointment with your primary care provider. ) Discharge Diet: As Directed Discharge Activity: Increase activity as tolerated Patient Instructions: Levofloxacin (By mouth) (Levaquin, Levaquin Leva-danya), GERD (Gastroesophageal Reflux Disease) in Children (GEN), Community Acquired Pneumonia (GEN) Activity Restrictions/Additional Instructions: Follow-up with your primary doctor for reassessment after recovery from left lower lobe pneumonia. Complete antibiotic course. Follow-up for modified barium swallow study to assess for any component of aspiration. Once you recover from pneumonia discussed with your primary doctor referral also for assessment by pulmonary function testing and other assessment of chronic cough with consideration of referral to pulmonology. This may also be triggered by GERD. Follow-up with your primary doctor for treatment of recurrent reflux. Continue increased dose omeprazole. Sucralfate. Continue reflux precautions as you have been per our discussion. Complete antibiotic course for pneumonia with Levaquin. If experiencing any joint or tendon pain stop the medication immediately and contact a medical provider. Continue to monitor blood pressures, at current time we do not need to resume hydrochlorothiazide, her blood pressure has been in good range. You are resumed on lower dose of valsartan at 40 mg twice daily. However, monitor blood pressures at home, target blood pressures 120/80, if your blood pressures are rising above 140/90, resume your previous doses of medications of valsartan and hydrochlorothiazide. If your blood pressure is less than 110/60 do not take bl ood pressure medication that time. Have your primary doctor reassess your potassium and sodium levels which were mildly low on presentation. Discharge Attestations Time Spent in Discharge Care*: greater than 30 min Quality Metrics Clinical Quality Measures [ No reported AMI, CVA or VTE this stay] Coding Level of Care Code 15766 Total time (in minutes) for Discharge: 40 Diagnoses Sepsis A41.9 Pneumonia J18.9 Laterality: bilateral Lung location: unspecified part of lung Pneumonia type: due to unspecified organism Nausea and vomiting R11.2 Hypokalemia E87.6 Lactic acidosis E87.20 Hyponatremia E87.1 GERD without esophagitis K21.9 Heart failure with preserved ejection fraction I50.30
[2023-11-01 11:22] VITALS: BP 124/67; PULSE 66; RESP 18; TEMP 36.4; O2SAT 96
== END 2023-11-01 10:15 | disposition home or self-care (01) | DRG 871 ==
LOC: ER 21:24 → MEDSURG 21:26
PROVIDERS: Admitting Provider Internal Medicine; Emergency Provider Emergency Medicine; PCP Family Medicine; Visit Provider Internal Medicine
DX: A41.9 Sepsis, unspecified organism (principal); J69.0 Pneumonitis due to inhalation of food and vomit; E87.20 Acidosis, unspecified; E87.1 Hypo-osmolality and hyponatremia; I50.32 Chronic diastolic (congestive) heart failure; R11.2 Nausea with vomiting, unspecified; E87.6 Hypokalemia; K21.9 Gastro-esophageal reflux disease without esophagitis; K29.70 Gastritis, unspecified, without bleeding; I11.0 Hypertensive heart disease with heart failure; I95.9 Hypotension, unspecified; Z79.82 Long term (current) use of aspirin
CPT/HCPCS: 36415; 71045; 71275; 74177; 80048; 80053; 81003; 81015; 83605; 83690; 83735; 83880; 84100; 84145; 85025; 85378; 86403; 87040; 87426; 93005; 96365; 96375; 99285; G0378; J0456; J0696; J2470; J2543; J3480; J7030; J7050; J7120; Q9967

== ENCOUNTER 2024-03-22 11:53 | Outpatient (CLI) | payer MEDICARE, SELFPAY ==
--- NOTE | 2024-03-22 11:55 | CT_ITS ---
WS: [id number] CT ABDOMEN PELVIS TECHNIQUE: Contrast-enhanced CT of the abdomen and pelvis with coronal and sagittal reformatted image s. CLINICAL INFORMATION: LOWER ABDOMINAL PAIN COMPARISON: CT 10/29/2023 DLP: 455.[address] scans at [facility] use at least one of these dose optimization techniques: automated e xposure control; mA and/or kV adjustment per patient size (includes targeted exams where dose is matc hed to clinical indication); or iterative reconstruction. FINDINGS: Diffuse fatty infiltration of the liver. Multiple hepatic cysts. RIGHT hepatic cavernous he mangioma measuring 12 mm. Portal vein and splenic vein are patent. Normal spleen. Moderate esophageal hernia. Thickening of the gastric rugae can be seen with gastritis. Thickening of the duodenum can b e seen with duodenitis. Lung bases are well aerated. Normal pancreas. Celiac and SMA are patent. Normal caliber abdominal aor ta. Moderate aortic calcification. Adrenal glands are normal. Splenic artery calcification. Sigmoid constipation. Diffuse pancolonic fecal retention. Normal ileocecal valve. Fecalization of the distal ileum. Fluid distended loops of distal small bowel measuring up to 2.1 cm with mild mucosal e nhancement. RIGHT colon is decompressed. No abdominal or pelvic lymphadenopathy. Prior hysterectomy. CT/CT abdomen pelvis w con* [id number] IMPRESSION: 1. Moderate diffuse pancolonic constipation. This is similar to the prior stud y. Consider further evaluation with colonoscopy. 2. Mild fecalization of the terminal ileum wit fluid distention of distal smal l bowel loops with mucosal enhancement. This is nonspecific but can be seen wit h delayed transit and small bowel enteritis 3. No evidence of high-grade obstruction. 4. Evidence of gastritis and duodenitis. 5. Moderate esophageal hiatal hernia. 6. Prior hysterectomy.
[2024-03-22] MEDS: iohexol 350 mg/mL 500 mL Btl (per mL) PO (12:23)
[2024-03-22] MEDS: iohexol 350 mg/mL 500 mL Btl (per mL) IV (12:38)
== END 2024-03-22 11:54 | disposition home or self-care (01) ==
LOC: RAD 11:54
PROVIDERS: PCP Family Medicine; Visit Provider Family Medicine
DX: R93.5 Abnormal findings on diagnostic imaging of other abdominal regions, including retroperitoneum (principal); K59.09 Other constipation; K29.70 Gastritis, unspecified, without bleeding; K29.80 Duodenitis without bleeding; K44.9 Diaphragmatic hernia without obstruction or gangrene; Z98.890 Other specified postprocedural states; K76.0 Fatty (change of) liver, not elsewhere classified; K76.89 Other specified diseases of liver; D18.00 Hemangioma unspecified site; I70.0 Atherosclerosis of aorta; I70.8 Atherosclerosis of other arteries; R93.89 Abnormal findings on diagnostic imaging of other specified body structures
CPT/HCPCS: 74177

== ENCOUNTER → 2025-02-21 08:36 | Outpatient (BNVA) | payer MEDICARE, SELFPAY | PROVIDERS: PCP Family Medicine; Visit Provider Surgery | DX: R13.10 Dysphagia, unspecified (principal) | CPT/HCPCS: 99204 ==